=== PATIENT | female | born 1970 | race Caucasian/White ===

== ENCOUNTER 2024-07-03 11:28 | Outpatient (RCR) | payer MEDICARE, MEDICAID, SELFPAY ==
[2024-07-02 16:19] LABS: Basophils # (Auto) 0.1 Thou/mm3 (0.0-0.2); Basophils % (Auto) 1 % (0-2.5); Eosinophils # (Auto) 0.2 Thou/mm3 (0.0-0.5); Eosinophils % (Auto) 2 % (0-10); Hematocrit 42.2 % (36.0-46.0); Hemoglobin 14.1 g/dL (12.0-16.0); Immature Granulocytes % (Auto) 0 % (0-0); Immature Granulocytes Auto 0.03 Thou/mm3 (0.00-0.00); Lymphocytes # (Auto) 2.5 Thou/mm3 (1.0-4.8); Lymphocytes % (Auto) 29 % (10-50); Mean Corpuscular HGB Conc 33.4 g/dl (31.0-37.0); Mean Corpuscular Hemoglobin 29.7 pg (25.0-35.0); Mean Corpuscular Volume 89 fL (80-100); Monocytes # (Auto) 0.5 Thou/mm3 (0.0-0.8); Monocytes % (Auto) 6 % (0-12); Neutrophils # (Auto) 5.2 Thou/mm3 (1.8-7.7); Neutrophils % (Auto) 62 % (37-80); Nucleated Red Blood Cell % 0 /100 WBC (0); Platelet Count 333 Thou/mm3 (140-440); RDW Standard Deviation 45.2 fL (36.4-46.3); Red Blood Count 4.75 Miln/mm3 (4.00-5.20); White Blood Count 8.5 Thou/mm3 (3.6-11.0)
[2024-07-02 16:38] LABS: Alanine Aminotransferase 14 U/L (10-49); Albumin, Serum 4.8 gm/dL (3.5-5.0); Albumin/Globulin Ratio 1.8 (1.2-2.2); Alkaline Phosphatase 98 U/L (46-116); Anion Gap 6 (7-16); Aspartate Amino Transferase 11 U/L (0-34); BUN/Creatinine Ratio 9 Ratio (12-20); Bilirubin,Total 0.2 mg/dL (0.3-1.2); Blood Urea Nitrogen 9 mg/dL (9-23); Calcium 9.9 mg/dL (8.3-10.6); Calcium (Corrected) 9.9 mg/dL (8.5-10.1); Carbon Dioxide 25.4 mMol/L (20.0-31.0); Chloride 106 mMol/L (98-107); Globulin 2.7 gm/dL (2.3-3.5); Glucose 90 mg/dL (74-106); Osmolality,Calculated 272 (275-295); Potassium 3.8 mMol/L (3.4-5.1); Sodium 137 mMol/L (136-145); Thyroid Stimulating Hormone 1.34 uIU/mL (0.55-4.78); Total Protein 7.5 gm/dL (5.7-8.2); eGFR > 60 See Note
== END 2024-07-27 23:59 | disposition home or self-care (01) ==
LOC: SCTC 11:28
PROVIDERS: PCP Physician Assistant; Referring Provider Physician Assistant; Visit Provider Internal Medicine Hematology & Oncology
DX: Z51.11 Encounter for antineoplastic chemotherapy (principal); C44.521 Squamous cell carcinoma of skin of breast; Z21 Asymptomatic human immunodeficiency virus [HIV] infection status; Z79.899 Other long term (current) drug therapy
CPT/HCPCS: 36415; 80053; 84443; 85025; 96413; J9119

== ENCOUNTER 2024-08-06 10:45 | Outpatient (RCR) | payer MEDICARE, MEDICAID, SELFPAY ==
[2024-08-05 16:31] LABS: Basophils % (Auto) 0 % (0-2.5); Eosinophils # (Auto) 0.1 Thou/mm3 (0.0-0.5); Eosinophils % (Auto) 1 % (0-10); Hematocrit 36.7 % (36.0-46.0); Hemoglobin 12.2 g/dL (12.0-16.0); Immature Granulocytes % (Auto) 1 % (0-0); Immature Granulocytes Auto 0.04 Thou/mm3 (0.00-0.00); Lymphocytes % (Auto) 24 % (10-50); Mean Corpuscular HGB Conc 33.2 g/dl (31.0-37.0); Mean Corpuscular Volume 90 fL (80-100); Monocytes # (Auto) 0.5 Thou/mm3 (0.0-0.8); Monocytes % (Auto) 6 % (0-12); Neutrophils # (Auto) 5.7 Thou/mm3 (1.8-7.7); Neutrophils % (Auto) 68 % (37-80); Nucleated Red Blood Cell % 0 /100 WBC (0); Platelet Count 312 Thou/mm3 (140-440); RDW Standard Deviation 47.8 fL (36.4-46.3); Red Blood Count 4.07 Miln/mm3 (4.00-5.20); White Blood Count 8.3 Thou/mm3 (3.6-11.0)
[2024-08-05 16:53] LABS: Alanine Aminotransferase 11 U/L (10-49); Albumin, Serum 4.2 gm/dL (3.5-5.0); Albumin/Globulin Ratio 1.9 (1.2-2.2); Alkaline Phosphatase 80 U/L (46-116); Anion Gap 6 (7-16); Aspartate Amino Transferase 15 U/L (0-34); BUN/Creatinine Ratio 12 Ratio (12-20); Bilirubin,Total 0.2 mg/dL (0.3-1.2); Blood Urea Nitrogen 11 mg/dL (9-23); Calcium 9.1 mg/dL (8.3-10.6); Calcium (Corrected) 9.1 mg/dL (8.5-10.1); Carbon Dioxide 25.7 mMol/L (20.0-31.0); Chloride 109 mMol/L (98-107); Creatinine (Component) 0.9 mg/dL (0.6-1.3); Globulin 2.2 gm/dL (2.3-3.5); Glucose 113 mg/dL (74-106); Osmolality,Calculated 281 (275-295); Potassium 4.1 mMol/L (3.4-5.1); Sodium 141 mMol/L (136-145); Thyroid Stimulating Hormone 1.04 uIU/mL (0.55-4.78); Total Protein 6.4 gm/dL (5.7-8.2); eGFR > 60 See Note
== END 2024-08-27 23:59 | disposition home or self-care (01) ==
LOC: SCTC 10:45
PROVIDERS: PCP Family Medicine; Referring Provider Internal Medicine Hematology & Oncology; Visit Provider Internal Medicine Hematology & Oncology
DX: Z51.11 Encounter for antineoplastic chemotherapy (principal); C44.529 Squamous cell carcinoma of skin of other part of trunk; Z21 Asymptomatic human immunodeficiency virus [HIV] infection status; Z79.899 Other long term (current) drug therapy
CPT/HCPCS: 36415; 80053; 84443; 85025; 96413; J9119

== ENCOUNTER 2024-09-24 13:03 | Outpatient (RCR) | payer MEDICARE, SELFPAY ==
[2024-09-02 12:10] LABS: Basophils % (Auto) 1 % (0-2.5); Eosinophils # (Auto) 0.1 Thou/mm3 (0.0-0.5); Eosinophils % (Auto) 2 % (0-10); Hematocrit 39.6 % (36.0-46.0); Hemoglobin 13.7 g/dL (12.0-16.0); Immature Granulocytes % (Auto) 0 % (0-0); Immature Granulocytes Auto 0.01 Thou/mm3 (0.00-0.00); Lymphocytes # (Auto) 2.1 Thou/mm3 (1.0-4.8); Lymphocytes % (Auto) 31 % (10-50); Mean Corpuscular HGB Conc 34.6 g/dl (31.0-37.0); Mean Corpuscular Hemoglobin 29.8 pg (25.0-35.0); Mean Corpuscular Volume 86 fL (80-100); Monocytes # (Auto) 0.5 Thou/mm3 (0.0-0.8); Monocytes % (Auto) 8 % (0-12); Neutrophils % (Auto) 59 % (37-80); Nucleated Red Blood Cell % 0 /100 WBC (0); Platelet Count 286 Thou/mm3 (140-440); RDW Standard Deviation 42.6 fL (36.4-46.3); Red Blood Count 4.59 Miln/mm3 (4.00-5.20); White Blood Count 6.8 Thou/mm3 (3.6-11.0)
[2024-09-02 12:55] LABS: Alanine Aminotransferase 14 U/L (10-49); Albumin, Serum 4.6 gm/dL (3.5-5.0); Albumin/Globulin Ratio 1.8 (1.2-2.2); Alkaline Phosphatase 91 U/L (46-116); Anion Gap 6 (7-16); Aspartate Amino Transferase < 8 U/L (0-34); BUN/Creatinine Ratio 13 Ratio (12-20); Bilirubin,Total 0.3 mg/dL (0.3-1.2); Blood Urea Nitrogen 10 mg/dL (9-23); Calcium 9.6 mg/dL (8.3-10.6); Calcium (Corrected) 9.6 mg/dL (8.5-10.1); Carbon Dioxide 21.9 mMol/L (20.0-31.0); Chloride 110 mMol/L (98-107); Creatinine (Component) 0.8 mg/dL (0.6-1.3); Globulin 2.5 gm/dL (2.3-3.5); Glucose 84 mg/dL (74-106); Osmolality,Calculated 273 (275-295); Potassium 3.9 mMol/L (3.4-5.1); Sodium 138 mMol/L (136-145); Total Protein 7.1 gm/dL (5.7-8.2); eGFR > 60 See Note
[2024-09-23 15:21] LABS: Basophils % (Auto) 1 % (0-2.5); Eosinophils # (Auto) 0.1 Thou/mm3 (0.0-0.5); Eosinophils % (Auto) 2 % (0-10); Hematocrit 38.4 % (36.0-46.0); Immature Granulocytes % (Auto) 0 % (0-0); Immature Granulocytes Auto 0.02 Thou/mm3 (0.00-0.00); Lymphocytes # (Auto) 2.3 Thou/mm3 (1.0-4.8); Lymphocytes % (Auto) 32 % (10-50); Mean Corpuscular HGB Conc 33.9 g/dl (31.0-37.0); Mean Corpuscular Volume 89 fL (80-100); Monocytes # (Auto) 0.5 Thou/mm3 (0.0-0.8); Monocytes % (Auto) 6 % (0-12); Neutrophils # (Auto) 4.5 Thou/mm3 (1.8-7.7); Neutrophils % (Auto) 60 % (37-80); Nucleated Red Blood Cell % 0 /100 WBC (0); Platelet Count 289 Thou/mm3 (140-440); RDW Standard Deviation 44.7 fL (36.4-46.3); Red Blood Count 4.33 Miln/mm3 (4.00-5.20); White Blood Count 7.4 Thou/mm3 (3.6-11.0)
[2024-09-23 15:39] LABS: Alanine Aminotransferase 12 U/L (10-49); Albumin, Serum 4.3 gm/dL (3.5-5.0); Albumin/Globulin Ratio 1.7 (1.2-2.2); Alkaline Phosphatase 87 U/L (46-116); Anion Gap 9 (7-16); Aspartate Amino Transferase 19 U/L (0-34); BUN/Creatinine Ratio 8 Ratio (12-20); Bilirubin,Total 0.2 mg/dL (0.3-1.2); Blood Urea Nitrogen 7 mg/dL (9-23); Calcium 9.4 mg/dL (8.3-10.6); Calcium (Corrected) 9.4 mg/dL (8.5-10.1); Carbon Dioxide 20.2 mMol/L (20.0-31.0); Chloride 110 mMol/L (98-107); Creatinine (Component) 0.9 mg/dL (0.6-1.3); Globulin 2.5 gm/dL (2.3-3.5); Glucose 109 mg/dL (74-106); Osmolality,Calculated 276 (275-295); Potassium 3.6 mMol/L (3.4-5.1); Sodium 139 mMol/L (136-145); Thyroid Stimulating Hormone 1.05 uIU/mL (0.55-4.78); Total Protein 6.8 gm/dL (5.7-8.2); eGFR > 60 See Note
== END 2024-09-27 23:59 | disposition home or self-care (01) ==
LOC: SCTC 13:03
PROVIDERS: PCP Family Medicine; Referring Provider Family Medicine; Visit Provider Internal Medicine Hematology & Oncology
DX: Z51.11 Encounter for antineoplastic chemotherapy (principal); C44.529 Squamous cell carcinoma of skin of other part of trunk; Z21 Asymptomatic human immunodeficiency virus [HIV] infection status; Z79.899 Other long term (current) drug therapy
CPT/HCPCS: 36591; 80053; 84443; 85025; 96413; A4216; J1642; J9119

== ENCOUNTER 2024-10-16 13:09 | Outpatient (RCR) | payer MEDICARE, SELFPAY ==
[2024-10-15 14:10] LABS: Basophils % (Auto) 0 % (0-2.5); Eosinophils # (Auto) 0.1 Thou/mm3 (0.0-0.5); Eosinophils % (Auto) 1 % (0-10); Hematocrit 41.5 % (36.0-46.0); Hemoglobin 14.4 g/dL (12.0-16.0); Immature Granulocytes % (Auto) 0 % (0-0); Immature Granulocytes Auto 0.04 Thou/mm3 (0.00-0.00); Lymphocytes # (Auto) 2.1 Thou/mm3 (1.0-4.8); Lymphocytes % (Auto) 21 % (10-50); Mean Corpuscular HGB Conc 34.7 g/dl (31.0-37.0); Mean Corpuscular Hemoglobin 30.1 pg (25.0-35.0); Mean Corpuscular Volume 87 fL (80-100); Monocytes # (Auto) 0.7 Thou/mm3 (0.0-0.8); Monocytes % (Auto) 7 % (0-12); Neutrophils % (Auto) 70 % (37-80); Nucleated Red Blood Cell % 0 /100 WBC (0); Platelet Count 320 Thou/mm3 (140-440); RDW Standard Deviation 41.5 fL (36.4-46.3); Red Blood Count 4.78 Miln/mm3 (4.00-5.20); White Blood Count 9.9 Thou/mm3 (3.6-11.0)
[2024-10-15 14:19] LABS: Alanine Aminotransferase 16 U/L (10-49); Albumin, Serum 4.9 gm/dL (3.5-5.0); Albumin/Globulin Ratio 1.6 (1.2-2.2); Alkaline Phosphatase 114 U/L (46-116); Anion Gap 9 (7-16); Aspartate Amino Transferase 20 U/L (0-34); BUN/Creatinine Ratio 12 Ratio (12-20); Bilirubin,Total 0.3 mg/dL (0.3-1.2); Blood Urea Nitrogen 11 mg/dL (9-23); Calcium 9.8 mg/dL (8.3-10.6); Calcium (Corrected) 9.8 mg/dL (8.5-10.1); Carbon Dioxide 24.5 mMol/L (20.0-31.0); Chloride 102 mMol/L (98-107); Creatinine (Component) 0.9 mg/dL (0.6-1.3); Glucose 86 mg/dL (74-106); Osmolality,Calculated 268 (275-295); Potassium 4.1 mMol/L (3.4-5.1); Sodium 135 mMol/L (136-145); Thyroid Stimulating Hormone 2.41 uIU/mL (0.55-4.78); Total Protein 7.9 gm/dL (5.7-8.2); eGFR > 60 See Note
== END 2024-10-25 23:59 | disposition home or self-care (01) ==
LOC: SCTC 13:09
PROVIDERS: PCP Family Medicine; Referring Provider Family Medicine; Visit Provider Internal Medicine Hematology & Oncology
DX: Z51.11 Encounter for antineoplastic chemotherapy (principal); C44.521 Squamous cell carcinoma of skin of breast; Z21 Asymptomatic human immunodeficiency virus [HIV] infection status; Z79.899 Other long term (current) drug therapy
CPT/HCPCS: 36591; 80053; 84443; 85025; 96413; J7050; J9119

== ENCOUNTER 2024-11-25 13:58 | Outpatient (RCR) | payer MEDICARE, SELFPAY ==
[2024-11-05 14:06] LABS: Basophils % (Auto) 1 % (0-2.5); Eosinophils # (Auto) 0.2 Thou/mm3 (0.0-0.5); Eosinophils % (Auto) 3 % (0-10); Hematocrit 39.5 % (36.0-46.0); Hemoglobin 13.6 g/dL (12.0-16.0); Immature Granulocytes % (Auto) 0 % (0-0); Immature Granulocytes Auto 0.02 Thou/mm3 (0.00-0.00); Lymphocytes % (Auto) 24 % (10-50); Mean Corpuscular HGB Conc 34.4 g/dl (31.0-37.0); Mean Corpuscular Hemoglobin 30.4 pg (25.0-35.0); Mean Corpuscular Volume 88 fL (80-100); Monocytes # (Auto) 0.5 Thou/mm3 (0.0-0.8); Monocytes % (Auto) 6 % (0-12); Neutrophils # (Auto) 5.5 Thou/mm3 (1.8-7.7); Neutrophils % (Auto) 66 % (37-80); Nucleated Red Blood Cell % 0 /100 WBC (0); Platelet Count 292 Thou/mm3 (140-440); RDW Standard Deviation 43.8 fL (36.4-46.3); Red Blood Count 4.48 Miln/mm3 (4.00-5.20); White Blood Count 8.4 Thou/mm3 (3.6-11.0)
[2024-11-05 14:31] LABS: Alanine Aminotransferase 16 U/L (10-49); Albumin, Serum 4.6 gm/dL (3.5-5.0); Albumin/Globulin Ratio 1.8 (1.2-2.2); Alkaline Phosphatase 90 U/L (46-116); Anion Gap 7 (7-16); Aspartate Amino Transferase 23 U/L (0-34); BUN/Creatinine Ratio 14 Ratio (12-20); Bilirubin,Total < 0.2 mg/dL (0.3-1.2); Blood Urea Nitrogen 10 mg/dL (9-23); Calcium 9.7 mg/dL (8.3-10.6); Calcium (Corrected) 9.7 mg/dL (8.5-10.1); Carbon Dioxide 21.3 mMol/L (20.0-31.0); Chloride 112 mMol/L (98-107); Creatinine (Component) 0.7 mg/dL (0.6-1.3); Globulin 2.6 gm/dL (2.3-3.5); Glucose 96 mg/dL (74-106); Osmolality,Calculated 278 (275-295); Potassium 4.1 mMol/L (3.4-5.1); Sodium 140 mMol/L (136-145); Thyroid Stimulating Hormone 1.24 uIU/mL (0.55-4.78); Total Protein 7.2 gm/dL (5.7-8.2); eGFR > 60 See Note
[2024-11-25 15:27] LABS: Basophils % (Auto) 1 % (0-2.5); Eosinophils # (Auto) 0.1 Thou/mm3 (0.0-0.5); Eosinophils % (Auto) 2 % (0-10); Hematocrit 36.9 % (36.0-46.0); Hemoglobin 12.6 g/dL (12.0-16.0); Immature Granulocytes % (Auto) 0 % (0-0); Immature Granulocytes Auto 0.02 Thou/mm3 (0.00-0.00); Lymphocytes # (Auto) 2.3 Thou/mm3 (1.0-4.8); Lymphocytes % (Auto) 27 % (10-50); Mean Corpuscular HGB Conc 34.1 g/dl (31.0-37.0); Mean Corpuscular Hemoglobin 30.2 pg (25.0-35.0); Mean Corpuscular Volume 89 fL (80-100); Monocytes # (Auto) 0.4 Thou/mm3 (0.0-0.8); Monocytes % (Auto) 5 % (0-12); Neutrophils # (Auto) 5.7 Thou/mm3 (1.8-7.7); Neutrophils % (Auto) 66 % (37-80); Nucleated Red Blood Cell % 0 /100 WBC (0); Platelet Count 266 Thou/mm3 (140-440); RDW Standard Deviation 42.7 fL (36.4-46.3); Red Blood Count 4.17 Miln/mm3 (4.00-5.20); White Blood Count 8.6 Thou/mm3 (3.6-11.0)
[2024-11-25 15:42] LABS: Alanine Aminotransferase 13 U/L (10-49); Albumin, Serum 4.1 gm/dL (3.5-5.0); Albumin/Globulin Ratio 1.5 (1.2-2.2); Alkaline Phosphatase 85 U/L (46-116); Anion Gap 7 (7-16); Aspartate Amino Transferase 18 U/L (0-34); BUN/Creatinine Ratio 7 Ratio (12-20); Bilirubin,Total 0.2 mg/dL (0.3-1.2); Blood Urea Nitrogen 7 mg/dL (9-23); Calcium 9.1 mg/dL (8.3-10.6); Calcium (Corrected) 9.1 mg/dL (8.5-10.1); Carbon Dioxide 23.9 mMol/L (20.0-31.0); Chloride 111 mMol/L (98-107); Globulin 2.7 gm/dL (2.3-3.5); Glucose 99 mg/dL (74-106); Osmolality,Calculated 281 (275-295); Potassium 3.7 mMol/L (3.4-5.1); Sodium 142 mMol/L (136-145); Thyroid Stimulating Hormone 1.25 uIU/mL (0.55-4.78); Total Protein 6.8 gm/dL (5.7-8.2); eGFR > 60 See Note
== END 2024-11-25 23:59 | disposition home or self-care (01) ==
LOC: SCTC 13:58
PROVIDERS: PCP Family Medicine; Referring Provider Family Medicine; Visit Provider Internal Medicine Hematology & Oncology
DX: Z51.11 Encounter for antineoplastic chemotherapy (principal); C44.521 Squamous cell carcinoma of skin of breast; Z21 Asymptomatic human immunodeficiency virus [HIV] infection status; Z79.899 Other long term (current) drug therapy
CPT/HCPCS: 36415; 80053; 84443; 85025; 96413; J7050; J9119

== ENCOUNTER 2024-12-18 11:03 | Outpatient (RCR) | payer MEDICARE, SELFPAY ==
--- NOTE | 2024-11-26 22:22 | CTCFLWUP_ITS ---
Patient: NGA ETIENNE : 1970 Page 2 of 3 FOLLOW UP NOTE DATE OF SERVICE: 11/26/2024 NAME: NGA ETIENNE ACCOUNT: [id number] : 1970 AGE: 54 INTERVAL HISTORY: Have not seen a estimator for last couple of years. Patient endorses that she has been self treating her squamous cell cancer lesions on her arms as well as face as insurance did not cover her visits. Patient has been scraping of the lesions as well as cutting them off and shaving them in a bit to not get the progressive lesions. 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 Patient has been on Cemiplimab since 01/22/2020. History of HIV currently on antiretroviral medications under the care of Dr Gibbs. REASON FOR TODAY?S VISIT: This is office follow-up visit. Ms. Etienne is here at [facility]. She is clinically doing very well. Denies any new complaints. Denies any cough, chest pain, abdominal pain or leg cramps. Ambulating well without any help. Currently she is on Cemiplimab every 3 weeks. There is no clinical evidence of recurrence of her squamous cell carci noma of the chest. Ms. Etienne is planning on having surgery on the cervical spine in near future. Unspecified malignant neoplasm of skin of breast [ICD10] C44.501 DATE OF DIAGNOSIS: 2017 PATHOLOGY: Squamous cell cancer STAGE/TNM: Metastatic TREATMENT HISTORY: Care?Plan Start?Date Cycle Day Intent Cemiplimab?michael 04/30/2020 1 21 Palliative HISTORY OF PRESENT ILLNESS: Nga Etienne is a 54-year-old ENG speaking female with following history. 1986: Patient was diagnosed with HIV. She was 16 years old. According to her she contacted the HIV virus from her boyfriend who had blood transfusion. Currently she is being followed by Dr Gibbs infectious disease specialist from [place]. She saw him about 4 months ago. Currently she is on antiretroviral medications. Patient denies any history of drug abuse. 2018: Patient had surgery done at [facility] on right periorbital region. She had a tumor removed from that area. 3 months later she started noticing nodules on the right chest. According to her these 2 are related. 10/07/2019: Patient had radical resection of the fungating right chest squamous cell carcinoma measuring 20 x 15 cm in size. Pathology showed the following. 10/29/2019: Patient had skin graft from right thigh to right chest at [facility]. 12/12/2019: Patient had punch biopsy of the right chest nodule. Pathology showed recurrent invasive squamous cell carcinoma. 01/22/2020: Patient received first dose of Cemiplimab at [facility]. 01/22/2020: PET CT scan? 04/21/2020: PET CT scan? 04/30/2020: Patient is started on Cemiplimab here at the cancer center. 10/23/2020: PET CT scan? 03/30/2021: MRI of the brain without IV contrast? 09/14/2021: CT scan of the chest abdomen and pelvis with IV contrast? 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 abacavir - 300 mg tab As directed 2. baclofen - 10 mg 1 tab Twice a Day 3. busPIRone - 15 mg 0.5 tab Twice a Day 4. doxepin - 50 mg 1 Capsule Every day before sleep 5. Edurant - 25 mg 1 tab Daily 6. escitalopram oxalate - 20 mg 1 tab Daily 7. ibuprofen - 800 mg 1 tab Three times a day 8. lovastatin - 20 mg 1 tab Daily 9. Lyrica - 100 mg Four times a day 10. [place] - 10-325 mg 1 tab Every 8 Hours 11. ondansetron - 8 mg 1 tab Every 8 Hours 12. potassium chloride - 8 mEq 1 tab Daily 13. QUEtiapine - 50 mg 1 tab Every day before sleep 14. Tivicay - 50 mg 1 tab Daily 15. tiZANidine - 2 mg 1 Capsule As directed 16. verapamil - 180 mg 1 tab Twice a Day Medications Last Reconciled by Yuly Mares MA on 11/26/2024 ALLERGIES: codeine sulfate REVIEW OF SYSTEMS: A complete 14-point review of systems was performed and is negative except as noted in interval history. PHYSICAL EXAMINATION: VITAL SIGNS: Temperature?99, B/P?131/89, Oxygen?Saturation?98% Weight?183?lbs (Change?since?11/25/24:?-2?lbs) PAIN: 7 - Between severe and very severe pain ECOG Performance Status: 1 - Symptomatic; ambulatory; restricted in strenuous activity GENERAL APPEARANCE: Appears well, in no apparent distress, appropriately interactive. HEENT: Normocephalic, no temporal wasting, normal conjunctiva, no scleral icterus, normal hearing, lips without lesions, neck normal range of motion. CARDIOVASCULAR: Not assessed. PULMONARY: Normal respiratory effort, no respiratory distress or use of accessory muscles, speaking in full sentences, no tachypnea. EXTREMITIES: No pedal edema or cyanosis. SKIN: Mild gauze over the face and chest. Sand-like skin all over the arms and back. Multiple small lesions noted on the skin. Right arm has a bigger lesion about 2 cm. Nonhealing lesion on the ear NEUROLOGIC: Alert and oriented x4. PSHYCHIATRIC: Appropriate affect, mood normal, behavior normal, intact thought and speech. LABORATORY DATA: I have personally reviewed and interpreted each of the patient?s relevant lab tests, abnormal findings are below: Date 11/05/24 11/25/24 ??WHITE?BLOOD?COUNT?(Thou/mm3) 8.4 8.6 ??RED?BLOOD?COUNT?(Miln/mm3) 4.48 4.17 ??HEMOGLOBIN?(gm/dl) 13.6 12.6 ??HEMATOCRIT?(%) 39.5 36.9 ??PLATELET?COUNT?(Thou/mm3) 292 266 ??NEUTROPHILS?%,?AUTO?(%) 66 66 ??LYMPH?%,?AUTO?(%) 24 27 ??NEUTROPHILS,?AUTO?(Thou/mm3) 5.5 5.7 ??GLUCOSE,RANDOM?(mg/dL) 96 99 ??BLOOD?UREA?NITROGEN?(mg/dL) 10 7?L ??CREATININE?(mg/dL) 0.70 1.00 ??SODIUM?(mmol/L) 140 142 ??POTASSIUM?(mmol/L) 4.1 3.7 ??CHLORIDE?(mmol/L) 112?H 111?H ??CrCl?(CandG)?(ml/min) 101.47 71.44 ??AST/SGOT?(Unit/L) 23 18 ??ALT/SGPT?(Unit/L) 16 13 ??ALKALINE?PHOSPHATASE?(Unit/L) 90 85 ??BILIRUBIN,?TOTAL?(mg/dL) <?0.2?L 0.2?L ??PROTEIN?TOTAL?(gm/dl) 7.2 6.8 ??ALBUMIN,?SERUM?(gm/dl) 4.6 4.1 ??GLOBULIN?(gm/dl) 2.6 2.7 ??ALBUMIN/GLOBULIN?RATIO 1.8 1.5 ??CALCIUM,?SERUM?(mg/dL) 9.7 9.1 ??CALCIUM?SERUM?(CORRECTED)?(mg/dL) 9.7 9.1 ASSESSMENT/PLAN: 1. Metastatic squamous cell cancer s/p resection after local recurrence squamous cell cancer of the right chest wall patient multiple lesions on the skin Patient has been on Cemiplimab for many treatments I need dermatology opinion to see if patient need to continue treatment or we need to stop it I will send a new dermatology referral Patient advised to follow-up with for her infectious disease specialist Ms. Etienne is planning on having cervical spine surgery in near future. History of HIV currently on antiretroviral. AIDS currently on retroviral therapy under the care of Dr Gibbs. 1. Continue Cemiplimab as per treatment plan. Refer to dermatology. ORDERS: Order # Description [id number] PET/CT of Skull to mid-thigh for Restaging [id number] CBC + Comprehensive Metabolic Panel [id number] Lab Appointment [id number] Follow Up Appointment [id number] CBC + Comprehensive Metabolic Panel [id number] Lab Appointment [id number] Follow Up Appointment [id number] CBC + Comprehensive Metabolic Panel [id number] Lab Appointment [id number] Follow Up Appointment [id number] CBC + Comprehensive Metabolic Panel [id number] Lab Appointment [id number] Follow Up Appointment [id number] CBC + Comprehensive Metabolic Panel [id number] Lab Appointment [id number] Follow Up Appointment [id number] CBC + Comprehensive Metabolic Panel [id number] Lab Appointment [id number] Follow Up Appointment [id number] CBC + Comprehensive Metabolic Panel [id number] Lab Appointment [id number] Follow Up Appointment [id number] CBC + Comprehensive Metabolic Panel [id number] Lab Appointment [id number] Follow Up Appointment [id number] CBC + Comprehensive Metabolic Panel [id number] Lab Appointment [id number] Follow Up Appointment [id number] CBC + Comprehensive Metabolic Panel [id number] Lab Appointment [id number] Follow Up Appointment [id number] CBC + Comprehensive Metabolic Panel [id number] Lab Appointment [id number] Follow Up Appointment [id number] CBC + Comprehensive Metabolic Panel [id number] Lab Appointment [id number] Follow Up Appointment [id number] CBC + Comprehensive Metabolic Panel [id number] Lab Appointment [id number] Follow Up Appointment [id number] CBC + Comprehensive Metabolic Panel [id number] Lab Appointment [id number] Follow Up Appointment [id number] CBC + Comprehensive Metabolic Panel [id number] Lab Appointment [id number] Follow Up Appointment [id number] CBC + Comprehensive Metabolic Panel [id number] Lab Appointment [id number] Follow Up Appointment [id number] CBC + Comprehensive Metabolic Panel [id number] Lab Appointment [id number] Follow Up Appointment RETURN TO CLINIC: BILLING AND COMPLIANCE: I reviewed external records from providers outside my specialty as summarized above. I spent a total of 50 minutes on this patient?s care on the day of their visit excluding time spent related to any billed procedures. This time includes time spent with the patient as well as time spent documenting in the medical record, reviewing patients records and tests, obtaining history, placing orders, communicating with other healthcare professionals, counseling the patient, family or caregiver, and/or care coordination for the diagnoses above. Electronically Signed by: Reji Oneill MD T: 10:20 PM CC: Miguel?Angie? PCP: Bj Guo Referring: Bj Guo This document was completed utilizing speech recognition software. Grammatical errors, random word insertions, pronoun errors, and incomplete sentences are an occasional consequence of this system due to software limitations, ambient noise, and hardware issues. Any formal questions or concerns about the content, text or information contained within the body of this dictation should be directly addressed to the provider for clarification.
--- NOTE | 2024-12-15 22:31 | CTCFLWUP_ITS ---
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 Patient has been on Cemiplimab since 01/22/2020. History of HIV currently on antiretroviral medications under the care of Dr Gibbs. DATE OF DIAGNOSIS: STAGE/TNM: TREATMENT HISTORY: Care?Plan Start?Date Cycle Day Intent Cemiplimab?michael 04/30/2020 1 21 Palliative HISTORY OF PRESENT ILLNESS: Nga Etienne is a 53-year-old ENG speaking female with following history. 1986: Patient was diagnosed with HIV. She was 16 years old. According to her she contacted the HIV virus from her boyfriend who had blood transfusion. Currently she is being followed by Dr Gibbs infectious disease specialist from [place]. She saw him about 4 months ago. Currently she is on antiretroviral medications. Patient denies any history of drug abuse. 2018: Patient had [facility] at [facility] on right periorbital region. She had a tumor removed from that area. 3 months later she started noticing nodules on the right chest. According to her these 2 are related. 10/07/2019: Patient had radical resection of the fungating right chest squamous cell carcinoma measuring 20 x 15 cm in size. Pathology showed the following. 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 abacavir - 300 mg tab As directed 2. baclofen - 10 mg 1 tab Twice a Day 3. busPIRone - 15 mg 0.5 tab Twice a Day 4. doxepin - 50 mg 1 Capsule Every day before sleep 5. Edurant - 25 mg 1 tab Daily 6. escitalopram oxalate - 20 mg 1 tab Daily 7. ibuprofen - 800 mg 1 tab Three times a day 8. lovastatin - 20 mg 1 tab Daily 9. Lyrica - 100 mg Four times a day 10. [place] - 10-325 mg 1 tab Every 8 Hours 11. ondansetron - 8 mg 1 tab Every 8 Hours 12. potassium chloride - 8 mEq 1 tab Daily 13. QUEtiapine - 50 mg 1 tab Every day before sleep 14. Tivicay - 50 mg 1 tab Daily 15. tiZANidine - 2 mg 1 Capsule As directed 16. verapamil - 180 mg 1 tab Twice a Day Medications Last Reconciled by Yuly Mares MA on 11/26/2024 ALLERGIES: codeine sulfate REVIEW OF SYSTEMS: A complete 14-point review of systems was performed and is negative except as noted in interval history. PHYSICAL EXAMINATION: VITAL SIGNS: Temperature?99, B/P?131/89, Oxygen?Saturation?98% Weight?183?lbs (Change?since?11/25/24:?-2?lbs) PAIN: 0 - No pain ECOG Performance Status: 1 - Symptomatic; ambulatory; restricted in strenuous activity GENERAL APPEARANCE: Appears well, in no apparent distress, appropriately interactive. HEENT: Normocephalic, no temporal wasting, normal conjunctiva, no scleral icterus, normal hearing, lips without lesions, neck normal range of motion. CARDIOVASCULAR: Not assessed. PULMONARY: Normal respiratory effort, no respiratory distress or use of accessory muscles, speaking in full sentences, no tachypnea. EXTREMITIES: No pedal edema or cyanosis. SKIN: Normal skin appearance. NEUROLOGIC: Alert and oriented x4. PSHYCHIATRIC: Appropriate affect, mood normal, behavior normal, intact thought and speech. LABORATORY DATA: I have personally reviewed and interpreted each of the patient?s relevant lab tests, abnormal findings are below: Date 11/05/24 11/25/24 ??WHITE?BLOOD?COUNT?(Thou/mm3) 8.4 8.6 ??RED?BLOOD?COUNT?(Miln/mm3) 4.48 4.17 ??HEMOGLOBIN?(gm/dl) 13.6 12.6 ??HEMATOCRIT?(%) 39.5 36.9 ??PLATELET?COUNT?(Thou/mm3) 292 266 ??NEUTROPHILS?%,?AUTO?(%) 66 66 ??LYMPH?%,?AUTO?(%) 24 27 ??NEUTROPHILS,?AUTO?(Thou/mm3) 5.5 5.7 ??GLUCOSE,RANDOM?(mg/dL) 96 99 ??BLOOD?UREA?NITROGEN?(mg/dL) 10 7?L ??CREATININE?(mg/dL) 0.70 1.00 ??SODIUM?(mmol/L) 140 142 ??POTASSIUM?(mmol/L) 4.1 3.7 ??CHLORIDE?(mmol/L) 112?H 111?H ??CrCl?(CandG)?(ml/min) 101.47 71.44 ??AST/SGOT?(Unit/L) 23 18 ??ALT/SGPT?(Unit/L) 16 13 ??ALKALINE?PHOSPHATASE?(Unit/L) 90 85 ??BILIRUBIN,?TOTAL?(mg/dL) <?0.2?L 0.2?L ??PROTEIN?TOTAL?(gm/dl) 7.2 6.8 ??ALBUMIN,?SERUM?(gm/dl) 4.6 4.1 ??GLOBULIN?(gm/dl) 2.6 2.7 ??ALBUMIN/GLOBULIN?RATIO 1.8 1.5 ??CALCIUM,?SERUM?(mg/dL) 9.7 9.1 ??CALCIUM?SERUM?(CORRECTED)?(mg/dL) 9.7 9.1 ASSESSMENT/PLAN: ASSESSMENT: Patient is clinically doing well without any complaints today . Ms. Etienne is planning on having cervical spine surgery in near future. Her squamous cell carcinoma of the skin seems to be in remission without any obvious lesions Locally recurrent squamous cell carcinoma of the right chest wall status post surgery. History of HIV currently on antiretroviral. AIDS currently on retroviral therapy under the care of Dr Gibbs. PLAN: Continue Cemiplimab as per treatment plan. The last treatment prior to cervical spine surgery should be 3 weeks before the surgery. I have advised her to restart the Cemiplimab treatments 3 weeks after the surgery. I will see her back in clinic in 3 months for follow-up. ORDERS: Order # Description [id number] Follow Up Appointment [id number] CBC + Comprehensive Metabolic Panel [id number] Lab Appointment [id number] Follow Up Appointment [id number] CBC + Comprehensive Metabolic Panel [id number] Lab Appointment [id number] Follow Up Appointment [id number] CBC + Comprehensive Metabolic Panel [id number] Lab Appointment [id number] Follow Up Appointment [id number] CBC + Comprehensive Metabolic Panel [id number] Lab Appointment [id number] Follow Up Appointment [id number] CBC + Comprehensive Metabolic Panel [id number] Lab Appointment [id number] Follow Up Appointment [id number] CBC + Comprehensive Metabolic Panel [id number] Lab Appointment [id number] Follow Up Appointment [id number] CBC + Comprehensive Metabolic Panel [id number] Lab Appointment [id number] Follow Up Appointment MD [id number] CBC + Comprehensive Metabolic Panel [id number] Lab Appointment [id number] Follow Up Appointment [id number] CBC + Comprehensive Metabolic Panel [id number] Lab Appointment [id number] Follow Up Appointment [id number] CBC + Comprehensive Metabolic Panel [id number] Lab Appointment [id number] Follow Up Appointment [id number] CBC + Comprehensive Metabolic Panel [id number] Lab Appointment [id number] Follow Up Appointment [id number] CBC + Comprehensive Metabolic Panel [id number] Lab Appointment [id number] Follow Up Appointment [id number] CBC + Comprehensive Metabolic Panel [id number] Lab Appointment [id number] Follow Up Appointment [id number] CBC + Comprehensive Metabolic Panel [id number] Lab Appointment [id number] Follow Up Appointment [id number] CBC + Comprehensive Metabolic Panel [id number] Lab Appointment [id number] Follow Up Appointment [id number] CBC + Comprehensive Metabolic Panel [id number] Lab Appointment [id number] Follow Up Appointment RETURN TO CLINIC: BILLING AND COMPLIANCE: I reviewed external records from providers outside my specialty as summarized above. I spent a total of 50 minutes on this patient?s care on the day of their visit excluding time spent related to any billed procedures. This time includes time spent with the patient as well as time spent documenting in the medical record, reviewing patients records and tests, obtaining history, placing orders, communicating with other healthcare professionals, counseling the patient, family or caregiver, and/or care coordination for the diagnoses above. Electronically Signed by: {Object.Sanct_ID*PnP.NameFL@M}, {Object.Sanct_ID*PnP.Suffix@U} D: {Object.Sanct_Date} T: {Object.Sanct_Time} CC: Miguel?Angie,? PCP: Bj Guo Referring: Bj Guo This document was completed utilizing speech recognition software. Grammatical errors, random word insertions, pronoun errors, and incomplete sentences are an occasional consequence of this system due to software limitations, ambient noise, and hardware issues. Any formal questions or concerns about the content, text or information contained within the body of this dictation should be directly addressed to the provider for clarification.
[2024-12-17 14:27] LABS: Basophils % (Auto) 1 % (0-2.5); Eosinophils # (Auto) 0.2 Thou/mm3 (0.0-0.5); Eosinophils % (Auto) 3 % (0-10); Hematocrit 37.8 % (36.0-46.0); Hemoglobin 13.1 g/dL (12.0-16.0); Immature Granulocytes % (Auto) 0 % (0-0); Immature Granulocytes Auto 0.03 Thou/mm3 (0.00-0.00); Lymphocytes # (Auto) 2.1 Thou/mm3 (1.0-4.8); Lymphocytes % (Auto) 28 % (10-50); Mean Corpuscular HGB Conc 34.7 g/dl (31.0-37.0); Mean Corpuscular Hemoglobin 30.8 pg (25.0-35.0); Mean Corpuscular Volume 89 fL (80-100); Monocytes # (Auto) 0.5 Thou/mm3 (0.0-0.8); Monocytes % (Auto) 6 % (0-12); Neutrophils # (Auto) 4.6 Thou/mm3 (1.8-7.7); Neutrophils % (Auto) 62 % (37-80); Nucleated Red Blood Cell % 0 /100 WBC (0); Platelet Count 270 Thou/mm3 (140-440); Red Blood Count 4.25 Miln/mm3 (4.00-5.20); White Blood Count 7.4 Thou/mm3 (3.6-11.0)
[2024-12-17 14:53] LABS: Alanine Aminotransferase 13 U/L (10-49); Albumin, Serum 3.9 gm/dL (3.5-5.0); Albumin/Globulin Ratio 1.6 (1.2-2.2); Alkaline Phosphatase 80 U/L (46-116); Anion Gap 4 (7-16); Aspartate Amino Transferase 16 U/L (0-34); BUN/Creatinine Ratio 16 Ratio (12-20); Bilirubin,Total < 0.2 mg/dL (0.3-1.2); Blood Urea Nitrogen 14 mg/dL (9-23); Calcium 9.3 mg/dL (8.3-10.6); Calcium (Corrected) 9.4 mg/dL (8.5-10.1); Carbon Dioxide 22.2 mMol/L (20.0-31.0); Chloride 116 mMol/L (98-107); Creatinine (Component) 0.9 mg/dL (0.6-1.3); Globulin 2.5 gm/dL (2.3-3.5); Glucose 97 mg/dL (74-106); Osmolality,Calculated 283 (275-295); Potassium 3.6 mMol/L (3.4-5.1); Sodium 142 mMol/L (136-145); Thyroid Stimulating Hormone 0.87 uIU/mL (0.55-4.78); Total Protein 6.4 gm/dL (5.7-8.2); eGFR > 60 See Note
== END 2024-12-25 23:59 | disposition home or self-care (01) ==
LOC: SCTC 11:03
PROVIDERS: PCP Family Medicine; Referring Provider Family Medicine; Visit Provider Internal Medicine Hematology & Oncology
DX: Z51.11 Encounter for antineoplastic chemotherapy (principal); C44.521 Squamous cell carcinoma of skin of breast; Z21 Asymptomatic human immunodeficiency virus [HIV] infection status; Z79.899 Other long term (current) drug therapy
CPT/HCPCS: 36415; 80053; 84443; 85025; 96413; 99212; J7050; J9119; G0463

== ENCOUNTER 2025-01-08 09:25 | Outpatient (RCR) | payer MEDICARE, SELFPAY ==
[2025-01-07 14:58] LABS: Basophils % (Auto) 0 % (0-2.5); Eosinophils # (Auto) 0.2 Thou/mm3 (0.0-0.5); Eosinophils % (Auto) 3 % (0-10); Hematocrit 37.1 % (36.0-46.0); Hemoglobin 12.7 g/dL (12.0-16.0); Immature Granulocytes % (Auto) 0 % (0-0); Immature Granulocytes Auto 0.02 Thou/mm3 (0.00-0.00); Lymphocytes # (Auto) 2.1 Thou/mm3 (1.0-4.8); Lymphocytes % (Auto) 26 % (10-50); Mean Corpuscular HGB Conc 34.2 g/dl (31.0-37.0); Mean Corpuscular Hemoglobin 30.3 pg (25.0-35.0); Mean Corpuscular Volume 89 fL (80-100); Monocytes # (Auto) 0.6 Thou/mm3 (0.0-0.8); Monocytes % (Auto) 7 % (0-12); Neutrophils # (Auto) 5.2 Thou/mm3 (1.8-7.7); Neutrophils % (Auto) 65 % (37-80); Nucleated Red Blood Cell % 0 /100 WBC (0); Platelet Count 309 Thou/mm3 (140-440); RDW Standard Deviation 44.1 fL (36.4-46.3); Red Blood Count 4.19 Miln/mm3 (4.00-5.20); White Blood Count 8.1 Thou/mm3 (3.6-11.0)
[2025-01-07 15:28] LABS: Alanine Aminotransferase 14 U/L (10-49); Albumin, Serum 4.4 gm/dL (3.5-5.0); Albumin/Globulin Ratio 1.8 (1.2-2.2); Alkaline Phosphatase 80 U/L (46-116); Anion Gap 3 (7-16); Aspartate Amino Transferase 19 U/L (0-34); BUN/Creatinine Ratio 9 Ratio (12-20); Bilirubin,Total < 0.2 mg/dL (0.3-1.2); Blood Urea Nitrogen 7 mg/dL (9-23); Calcium 9.4 mg/dL (8.3-10.6); Calcium (Corrected) 9.4 mg/dL (8.5-10.1); Carbon Dioxide 22.7 mMol/L (20.0-31.0); Chloride 109 mMol/L (98-107); Creatinine (Component) 0.8 mg/dL (0.6-1.3); Globulin 2.4 gm/dL (2.3-3.5); Glucose 95 mg/dL (74-106); Osmolality,Calculated 268 (275-295); Potassium 3.8 mMol/L (3.4-5.1); Sodium 135 mMol/L (136-145); Thyroid Stimulating Hormone 1.35 uIU/mL (0.55-4.78); Total Protein 6.8 gm/dL (5.7-8.2); eGFR > 60 See Note
== END 2025-01-25 23:59 | disposition home or self-care (01) ==
LOC: SCTC 09:25
PROVIDERS: Referring Provider Internal Medicine Hematology & Oncology; Visit Provider Internal Medicine Hematology & Oncology
DX: Z51.11 Encounter for antineoplastic chemotherapy (principal); C44.529 Squamous cell carcinoma of skin of other part of trunk; Z21 Asymptomatic human immunodeficiency virus [HIV] infection status; Z79.899 Other long term (current) drug therapy
CPT/HCPCS: 36415; 80053; 84443; 85025; 96413; J7050; J9119

== ENCOUNTER → 2025-02-04 | Outpatient (CLI) | payer MEDICARE, MEDICAID, SELFPAY ==
--- NOTE | 2025-02-04 14:00 | XR_ITS ---
EXAMINATION: PET/CT FUSION SKULL TO THIGH EXAM DATE AND TIME: February 04, [address] abdomen pelvis September 17, 2023, CT chest September 14, 2021 INDICATIONS: Diagnosis malignant melanoma restaging post treatment CTDI:vol (mGy) 6.71 DLP: (mGycm) 696 PROCEDURE: 16.4 mCi FDG was administered intravenously To allow for distribution and uptake of radiotracer, the patient was allowed to rest quietly in a shielded room. Imaging was performed on an integrated 16-slice PET/CT scanner, with scanning from the skull base to the mid thigh. Serum blood glucose at the time of the injection was measured 86 mg/dL. CT scanning was performed without oral or intravenous contrast material. FINDINGS: Head and Neck: Weakly hypermetabolic submental lymph nodes, axial image 63, on the left side 13 mm on the right side 10 mm Weakly hypermetabolic right carotid triangle lymph node, axial image 62, 6.5 mm Chest: There is no leonid hypermetabolism in the chest. There are no pulmonary nodules. Abdomen and Pelvis: There is no leonid hypermetabolism in retroperitoneal or pelvic chains. The spleen is normal in size and FDG avidity. Musculoskeletal: Marrow uptake is within normal range. IMPRESSION: Positive for weakly hypermetabolic submental and right carotid triangle lymphadenopathy as above
== END | disposition home or self-care (01) ==
PROVIDERS: PCP Family Medicine; Referring Provider Internal Medicine Hematology & Oncology; Visit Provider Internal Medicine Hematology & Oncology
DX: C43.52 Malignant melanoma of skin of breast (principal); R59.0 Localized enlarged lymph nodes
CPT/HCPCS: 78815; A9552

== ENCOUNTER 2025-02-19 12:59 | Outpatient (RCR) | payer MEDICARE, SELFPAY ==
[2025-01-27 16:28] LABS: Basophils % (Auto) 0 % (0-2.5); Eosinophils # (Auto) 0.1 Thou/mm3 (0.0-0.5); Eosinophils % (Auto) 2 % (0-10); Hematocrit 37.7 % (36.0-46.0); Hemoglobin 13.5 g/dL (12.0-16.0); Immature Granulocytes % (Auto) 0 % (0-0); Immature Granulocytes Auto 0.01 Thou/mm3 (0.00-0.00); Lymphocytes # (Auto) 2.4 Thou/mm3 (1.0-4.8); Lymphocytes % (Auto) 35 % (10-50); Mean Corpuscular HGB Conc 35.8 g/dl (31.0-37.0); Mean Corpuscular Hemoglobin 31.3 pg (25.0-35.0); Mean Corpuscular Volume 87 fL (80-100); Monocytes # (Auto) 0.4 Thou/mm3 (0.0-0.8); Monocytes % (Auto) 5 % (0-12); Neutrophils # (Auto) 3.9 Thou/mm3 (1.8-7.7); Neutrophils % (Auto) 58 % (37-80); Nucleated Red Blood Cell % 0 /100 WBC (0); Platelet Count 252 Thou/mm3 (140-440); RDW Standard Deviation 43.4 fL (36.4-46.3); Red Blood Count 4.32 Miln/mm3 (4.00-5.20); White Blood Count 6.8 Thou/mm3 (3.6-11.0)
[2025-01-27 16:49] LABS: Alanine Aminotransferase 16 U/L (10-49); Albumin, Serum 4.4 gm/dL (3.5-5.0); Albumin/Globulin Ratio 1.8 (1.2-2.2); Alkaline Phosphatase 82 U/L (46-116); Anion Gap 12 (7-16); Aspartate Amino Transferase 23 U/L (0-34); BUN/Creatinine Ratio 6 Ratio (12-20); Bilirubin,Total 0.3 mg/dL (0.3-1.2); Blood Urea Nitrogen 6 mg/dL (9-23); Calcium 9.2 mg/dL (8.3-10.6); Calcium (Corrected) 9.2 mg/dL (8.5-10.1); Carbon Dioxide 23.9 mMol/L (20.0-31.0); Chloride 109 mMol/L (98-107); Globulin 2.4 gm/dL (2.3-3.5); Glucose 99 mg/dL (74-106); Osmolality,Calculated 286 (275-295); Potassium 3.8 mMol/L (3.4-5.1); Sodium 145 mMol/L (136-145); Thyroid Stimulating Hormone 0.95 uIU/mL (0.55-4.78); Total Protein 6.8 gm/dL (5.7-8.2); eGFR > 60 See Note
--- NOTE | 2025-02-16 21:53 | CTCFLWUP_ITS ---
Patient: NGA ETIENNE : 1970 Page 2 of 3 FOLLOW UP NOTE DATE OF SERVICE: 02/06/2025 NAME: NGA ETIENNE ACCOUNT: [id number] : 1970 AGE: 54 INTERVAL HISTORY: Subjective: Chief Complaint Lymph node activity on right side, dizziness, blisters in mouth, skin lesion on ear History of Present Illness Jaimie Sylvester, a patient with a history of melanoma, presents for follow-up of her condition. She reports a lymph node on the right side of her neck, which is the same side where she had a root canal done a couple of years ago. The patient mentions experiencing dizziness recently. She also reports waking up with blisters in her mouth. 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 She has not yet seen a sand miller but reports being recently approved for a referral. The patient expresses concern about her condition, stating, That's why I kept saying I needed to get into a sand miller. Nga mentions having a lesion on her ear. She has been experiencing dizziness, though the timing and severity are not specified. The patient denies being in the sun currently, stating, No, I'm not in the sun. However, she acknowledges the potential for UV exposure inside her house. The patient reports adherence to follow-up care, mentioning that an infusion on her neck has been proposed. She expresses a preference for continuing her care at [facility], where her initial melanoma surgery was performed. Review of Systems General: Positive for dizziness. Skin: Positive for blisters in mouth. HEENT: Positive for blisters in mouth. Neurological: Positive for dizziness. Objective: Physical Examination Neck: One mildly active lymph node noted on the right side. Skin: Lesion observed on the patient's ear on the right side. 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 Patient has been on Cemiplimab since 01/22/2020. History of HIV currently on antiretroviral medications under the care of Dr Gibbs. DATE OF DIAGNOSIS: STAGE/TNM: TREATMENT HISTORY: Care?Plan Start?Date Cycle Day Intent Cemiplimab?michael 04/30/2020 1 21 Palliative HISTORY OF PRESENT ILLNESS: Nga Etienne is a 54-year-old ENG speaking female with following history. 1986: Patient was diagnosed with HIV. She was 16 years old. According to her she contacted the HIV virus from her boyfriend who had blood transfusion. Currently she is being followed by Dr Gibbs infectious disease specialist from [place]. She saw him about 4 months ago. Currently she is on antiretroviral medications. Patient denies any history of drug abuse. 2018: Patient had surgery done at [facility] on right periorbital region. She had a tumor removed from that area. 3 months later she started noticing nodules on the right chest. According to her these 2 are related. 10/07/2019: Patient had radical resection of the fungating right chest squamous cell carcinoma measuring 20 x 15 cm in size. Pathology showed the following. 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 abacavir - 300 mg tab As directed 2. baclofen - 10 mg 1 tab Twice a Day 3. busPIRone - 15 mg 0.5 tab Twice a Day 4. doxepin - 50 mg 1 Capsule Every day before sleep 5. Edurant - 25 mg 1 tab Daily 6. escitalopram oxalate - 20 mg 1 tab Daily 7. ibuprofen - 800 mg 1 tab Three times a day 8. lovastatin - 20 mg 1 tab Daily 9. Lyrica - 100 mg Four times a day 10. [place] - 10-325 mg 1 tab Every 8 Hours 11. ondansetron - 8 mg 1 tab Every 8 Hours 12. potassium chloride - 8 mEq 1 tab Daily 13. QUEtiapine - 50 mg 1 tab Every day before sleep 14. Tivicay - 50 mg 1 tab Daily 15. tiZANidine - 2 mg 1 Capsule As directed 16. verapamil - 180 mg 1 tab Twice a Day Medications Last Reconciled by Yuly Mares MA on 02/06/2025 ALLERGIES: codeine sulfate REVIEW OF SYSTEMS: A complete 14-point review of systems was performed and is negative except as noted in interval history. PHYSICAL EXAMINATION: VITAL SIGNS: Temperature?98.4, B/P?128/91, Oxygen?Saturation?98% Weight?174?lbs (Change?since?01/29/25:?-4.4?lbs) PAIN: 7 - Between severe and very severe pain ECOG Performance Status: 0 - Asymptomatic and fully active GENERAL APPEARANCE: Appears well, in no apparent distress, appropriately interactive. HEENT: Normocephalic, no temporal wasting, normal conjunctiva, no scleral icterus, normal hearing, lips without lesions, neck normal range of motion. CARDIOVASCULAR: Not assessed. PULMONARY: Normal respiratory effort, no respiratory distress or use of accessory muscles, speaking in full sentences, no tachypnea. EXTREMITIES: No pedal edema or cyanosis. SKIN: Normal skin appearance. NEUROLOGIC: Alert and oriented x4. PSHYCHIATRIC: Appropriate affect, mood normal, behavior normal, intact thought and speech. LABORATORY DATA: I have personally reviewed and interpreted each of the patient?s relevant lab tests, abnormal findings are below: Date 01/07/25 01/27/25 ??WHITE?BLOOD?COUNT?(Thou/mm3) ? 8.1 6.8 ??RED?BLOOD?COUNT?(Miln/mm3) ? 4.19 4.32 ??HEMOGLOBIN?(gm/dl) ? 12.7 13.5 ??HEMATOCRIT?(%) ? 37.1 37.7 ??PLATELET?COUNT?(Thou/mm3) ? 309 252 ??NEUTROPHILS?%,?AUTO?(%) ? 65 58 ??LYMPH?%,?AUTO?(%) ? 26 35 ??NEUTROPHILS,?AUTO?(Thou/mm3) ? 5.2 3.9 ??GLUCOSE,RANDOM?(mg/dL) 95 ? 99 ??BLOOD?UREA?NITROGEN?(mg/dL) 7?L ? 6?L ??CREATININE?(mg/dL) 0.80 ? 1.00 ??SODIUM?(mmol/L) 135?L ? 145 ??POTASSIUM?(mmol/L) 3.8 ? 3.8 ??CHLORIDE?(mmol/L) 109?H ? 109?H ??CrCl?(CandG)?(ml/min) 88.83 ? 70.15 ??AST/SGOT?(Unit/L) 19 ? 23 ??ALT/SGPT?(Unit/L) 14 ? 16 ??ALKALINE?PHOSPHATASE?(Unit/L) 80 ? 82 ??BILIRUBIN,?TOTAL?(mg/dL) <?0.2?L ? 0.3 ??PROTEIN?TOTAL?(gm/dl) 6.8 ? 6.8 ??ALBUMIN,?SERUM?(gm/dl) 4.4 ? 4.4 ??GLOBULIN?(gm/dl) 2.4 ? 2.4 ??ALBUMIN/GLOBULIN?RATIO 1.8 ? 1.8 ??CALCIUM,?SERUM?(mg/dL) 9.4 ? 9.2 ??CALCIUM?SERUM?(CORRECTED)?(mg/dL) 9.4 ? 9.2 ASSESSMENT/PLAN: ASSESSMENT: Patient is clinically doing well without any complaints today . Ms. Etienne is planning on having cervical spine surgery in near future. Her squamous cell carcinoma of the skin seems to be in remission without any obvious lesions Locally recurrent squamous cell carcinoma of the right chest wall status post surgery. History of HIV currently on antiretroviral. AIDS currently on retroviral therapy under the care of Dr Gibbs. PLAN: Continue Cemiplimab as per treatment plan. The last treatment prior to cervical spine surgery should be 3 weeks before the surgery. I have advised her to restart the Cemiplimab treatments 3 weeks after the surgery. Jaimie Sylvester, born 1970, with a history of melanoma, presents for follow-up with concerns about lymph node activity and dizziness. Melanoma (history of) Assessment: Patient has a history of melanoma, surgically treated at [facility]. Recent PET scan shows mildly active lymph node on the right side, which corresponds to the side of previous melanoma. There is concern for potential recurrence or metastasis. 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 The melanoma has previously spread to the chest. Brain involvement cannot be ruled out with PET scan alone due to high baseline activity. Plan: - Refer back to [facility] surgeon for evaluation of PET scan findings - Order brain MRI to evaluate for potential metastasis - Refer to sand miller for comprehensive skin evaluation - Plan for immunotherapy pending surgical evaluation - Order circulating tumor DNA test to monitor for early recurrence - Follow-up appointment in 4 weeks to review progress and test results - Educate patient on importance of UV protection, even indoors Dizziness Assessment: Patient reports experiencing dizziness. The etiology is unclear at this time and may warrant further investigation, especially in the context of the patient's history of melanoma. Plan: - Monitor symptoms - Further evaluation to be considered based on progression and other test results Oral blisters Assessment: Patient reports waking up with blisters in the mouth. Plan: - Monitor symptoms - may be from immunotherapy - advised to use biotine mouthwash ORDERS: Order # Description [id number] Follow Up Appointment [id number] CBC + Comprehensive Metabolic Panel [id number] Lab Appointment [id number] Follow Up Appointment [id number] CBC + Comprehensive Metabolic Panel [id number] Lab Appointment [id number] Follow Up Appointment [id number] CBC + Comprehensive Metabolic Panel [id number] Lab Appointment [id number] Follow Up Appointment [id number] CBC + Comprehensive Metabolic Panel [id number] Lab Appointment [id number] Follow Up Appointment [id number] CBC + Comprehensive Metabolic Panel [id number] Lab Appointment [id number] Follow Up Appointment [id number] CBC + Comprehensive Metabolic Panel [id number] Lab Appointment [id number] Follow Up Appointment [id number] CBC + Comprehensive Metabolic Panel [id number] Lab Appointment [id number] Follow Up Appointment [id number] CBC + Comprehensive Metabolic Panel [id number] Lab Appointment [id number] Follow Up Appointment [id number] CBC + Comprehensive Metabolic Panel [id number] Lab Appointment [id number] Follow Up Appointment [id number] CBC + Comprehensive Metabolic Panel [id number] Lab Appointment [id number] Follow Up Appointment [id number] CBC + Comprehensive Metabolic Panel [id number] Lab Appointment [id number] Follow Up Appointment [id number] CBC + Comprehensive Metabolic Panel [id number] Lab Appointment [id number] Follow Up Appointment [id number] CBC + Comprehensive Metabolic Panel [id number] Lab Appointment [id number] Follow Up Appointment RETURN TO CLINIC: BILLING AND COMPLIANCE: I reviewed external records from providers outside my specialty as summarized above. I spent a total of 50 minutes on this patient?s care on the day of their visit excluding time spent related to any billed procedures. This time includes time spent with the patient as well as time spent documenting in the medical record, reviewing patients records and tests, obtaining history, placing orders, communicating with other healthcare professionals, counseling the patient, family or caregiver, and/or care coordination for the diagnoses above. Electronically Signed by: Reji Oneill MD T: 9:51 PM CC: Tyrese? PCP: Bj Guo Referring: Bj Guo This document was completed utilizing speech recognition software. Grammatical errors, random word insertions, pronoun errors, and incomplete sentences are an occasional consequence of this system due to software limitations, ambient noise, and hardware issues. Any formal questions or concerns about the content, text or information contained within the body of this dictation should be directly addressed to the provider for clarification.
[2025-02-18 14:47] LABS: Basophils % (Auto) 1 % (0-2.5); Eosinophils # (Auto) 0.1 Thou/mm3 (0.0-0.5); Eosinophils % (Auto) 1 % (0-10); Hematocrit 34.6 % (36.0-46.0); Hemoglobin 12.4 g/dL (12.0-16.0); Immature Granulocytes % (Auto) 0 % (0-0); Immature Granulocytes Auto 0.02 Thou/mm3 (0.00-0.00); Lymphocytes # (Auto) 1.7 Thou/mm3 (1.0-4.8); Lymphocytes % (Auto) 27 % (10-50); Mean Corpuscular HGB Conc 35.8 g/dl (31.0-37.0); Mean Corpuscular Hemoglobin 30.6 pg (25.0-35.0); Mean Corpuscular Volume 85 fL (80-100); Monocytes # (Auto) 0.3 Thou/mm3 (0.0-0.8); Monocytes % (Auto) 5 % (0-12); Neutrophils # (Auto) 4.1 Thou/mm3 (1.8-7.7); Neutrophils % (Auto) 66 % (37-80); Nucleated Red Blood Cell % 0 /100 WBC (0); Platelet Count 251 Thou/mm3 (140-440); RDW Standard Deviation 40.4 fL (36.4-46.3); Red Blood Count 4.05 Miln/mm3 (4.00-5.20); White Blood Count 6.3 Thou/mm3 (3.6-11.0)
[2025-02-18 15:05] LABS: Alanine Aminotransferase 16 U/L (10-49); Albumin, Serum 4.2 gm/dL (3.5-5.0); Albumin/Globulin Ratio 1.8 (1.2-2.2); Alkaline Phosphatase 73 U/L (46-116); Anion Gap 8 (7-16); Aspartate Amino Transferase 18 U/L (0-34); BUN/Creatinine Ratio 9 Ratio (12-20); Bilirubin,Total 0.2 mg/dL (0.3-1.2); Blood Urea Nitrogen 10 mg/dL (9-23); Calcium 9.1 mg/dL (8.3-10.6); Calcium (Corrected) 9.1 mg/dL (8.5-10.1); Carbon Dioxide 22.7 mMol/L (20.0-31.0); Chloride 109 mMol/L (98-107); Creatinine (Component) 1.1 mg/dL (0.6-1.3); Globulin 2.3 gm/dL (2.3-3.5); Glucose 83 mg/dL (74-106); Osmolality,Calculated 277 (275-295); Potassium 3.9 mMol/L (3.4-5.1); Sodium 140 mMol/L (136-145); Thyroid Stimulating Hormone 1.53 uIU/mL (0.55-4.78); Total Protein 6.5 gm/dL (5.7-8.2); eGFR 60 See Note
== END 2025-02-24 23:59 | disposition home or self-care (01) ==
LOC: SCTC 12:59
PROVIDERS: PCP Family Medicine; Referring Provider Family Medicine; Visit Provider Internal Medicine Hematology & Oncology
DX: Z51.11 Encounter for antineoplastic chemotherapy (principal); C44.521 Squamous cell carcinoma of skin of breast; R42 Dizziness and giddiness; S00.522A Blister (nonthermal) of oral cavity, initial encounter; X58.XXXA Exposure to other specified factors, initial encounter; L98.9 Disorder of the skin and subcutaneous tissue, unspecified
CPT/HCPCS: 36415; 80053; 84443; 85025; 96413; 99212; J7050; J9119; G0463

== ENCOUNTER 2025-03-12 12:58 | Outpatient (RCR) | payer MEDICARE, SELFPAY ==
[2025-03-11 16:09] LABS: Basophils # (Auto) 0.0 Thou/mm3 (0.0-0.2); Basophils % (Auto) 0 % (0-2.5); Eosinophils # (Auto) 0.1 Thou/mm3 (0.0-0.5); Eosinophils % (Auto) 1 % (0-10); Hematocrit 36.6 % (36.0-46.0); Hemoglobin 13.0 g/dL (12.0-16.0); Immature Granulocytes Auto 0.02 Thou/mm3 (0.00-0.00); Lymphocytes # (Auto) 1.8 Thou/mm3 (1.0-4.8); Lymphocytes % (Auto) 25 % (10-50); Mean Corpuscular HGB Conc 35.5 g/dl (31.0-37.0); Mean Corpuscular Hemoglobin 30.7 pg (25.0-35.0); Mean Corpuscular Volume 86 fL (80-100); Monocytes # (Auto) 0.5 Thou/mm3 (0.0-0.8); Monocytes % (Auto) 6 % (0-12); Neutrophils # (Auto) 4.8 Thou/mm3 (1.8-7.7); Neutrophils % (Auto) 67 % (37-80); Nucleated Red Blood Cell # 0.00 Thou/mm3 (0.00-0.00); Nucleated Red Blood Cell % 0 /100 WBC (0); Platelet Count 277 Thou/mm3 (140-440); RDW Standard Deviation 39.8 fL (36.4-46.3); Red Blood Count 4.24 Miln/mm3 (4.00-5.20); White Blood Count 7.1 Thou/mm3 (3.6-11.0)
[2025-03-11 16:26] LABS: Alanine Aminotransferase 12 U/L (10-49); Albumin, Serum 4.5 gm/dL (3.5-5.0); Albumin/Globulin Ratio 1.7 (1.2-2.2); Alkaline Phosphatase 80 U/L (46-116); Anion Gap 10 (7-16); Aspartate Amino Transferase 18 U/L (0-34); BUN/Creatinine Ratio 9 Ratio (12-20); Bilirubin,Total 0.4 mg/dL (0.3-1.2); Blood Urea Nitrogen 10 mg/dL (9-23); Calcium 9.4 mg/dL (8.3-10.6); Calcium (Corrected) 9.4 mg/dL (8.5-10.1); Carbon Dioxide 24.0 mMol/L (20.0-31.0); Chloride 103 mMol/L (98-107); Creatinine (Component) 1.1 mg/dL (0.6-1.3); Globulin 2.7 gm/dL (2.3-3.5); Glucose 100 mg/dL (74-106); Osmolality,Calculated 272 (275-295); Potassium 4.1 mMol/L (3.4-5.1); Sodium 137 mMol/L (136-145); Thyroid Stimulating Hormone 2.02 uIU/mL (0.55-4.78); Total Protein 7.2 gm/dL (5.7-8.2); eGFR 60 See Note
== END 2025-03-27 23:59 | disposition home or self-care (01) ==
LOC: SCTC 12:58
PROVIDERS: PCP Family Medicine; Referring Provider Family Medicine; Visit Provider Internal Medicine Hematology & Oncology
DX: Z51.11 Encounter for antineoplastic chemotherapy (principal); C44.529 Squamous cell carcinoma of skin of other part of trunk; Z21 Asymptomatic human immunodeficiency virus [HIV] infection status; Z79.899 Other long term (current) drug therapy; R42 Dizziness and giddiness; S00.522A Blister (nonthermal) of oral cavity, initial encounter; X58.XXXA Exposure to other specified factors, initial encounter
CPT/HCPCS: 36415; 36430; 36591; 80053; 84443; 85025; 96361; 96366; 96372; 96375; 96413; 96415; 96549; J7050; J9119

== ENCOUNTER 2025-04-15 13:07 | Outpatient (RCR) | payer MEDICARE, SELFPAY ==
[2025-04-14 14:00] LABS: Basophils # (Auto) 0.0 Thou/mm3 (0.0-0.2); Basophils % (Auto) 1 % (0-2.5); Eosinophils # (Auto) 0.2 Thou/mm3 (0.0-0.5); Eosinophils % (Auto) 2 % (0-10); Hematocrit 37.4 % (36.0-46.0); Hemoglobin 12.8 g/dL (12.0-16.0); Immature Granulocytes Auto 0.03 Thou/mm3 (0.00-0.00); Lymphocytes # (Auto) 1.5 Thou/mm3 (1.0-4.8); Lymphocytes % (Auto) 21 % (10-50); Mean Corpuscular HGB Conc 34.2 g/dl (31.0-37.0); Mean Corpuscular Hemoglobin 30.9 pg (25.0-35.0); Mean Corpuscular Volume 90 fL (80-100); Monocytes # (Auto) 0.4 Thou/mm3 (0.0-0.8); Monocytes % (Auto) 6 % (0-12); Neutrophils # (Auto) 5.2 Thou/mm3 (1.8-7.7); Neutrophils % (Auto) 71 % (37-80); Nucleated Red Blood Cell # 0.00 Thou/mm3 (0.00-0.00); Nucleated Red Blood Cell % 0 /100 WBC (0); Platelet Count 300 Thou/mm3 (140-440); RDW Standard Deviation 42.0 fL (36.4-46.3); Red Blood Count 4.14 Miln/mm3 (4.00-5.20); White Blood Count 7.4 Thou/mm3 (3.6-11.0)
[2025-04-14 14:24] LABS: Alanine Aminotransferase 14 U/L (10-49); Albumin, Serum 4.4 gm/dL (3.5-5.0); Albumin/Globulin Ratio 1.8 (1.2-2.2); Alkaline Phosphatase 75 U/L (46-116); Anion Gap 12 (7-16); Aspartate Amino Transferase 20 U/L (0-34); BUN/Creatinine Ratio 15 Ratio (12-20); Bilirubin,Total 0.3 mg/dL (0.3-1.2); Blood Urea Nitrogen 15 mg/dL (9-23); Calcium 9.8 mg/dL (8.3-10.6); Calcium (Corrected) 9.8 mg/dL (8.5-10.1); Carbon Dioxide 20.9 mMol/L (20.0-31.0); Chloride 107 mMol/L (98-107); Creatinine (Component) 1.0 mg/dL (0.6-1.3); Globulin 2.4 gm/dL (2.3-3.5); Glucose 93 mg/dL (74-106); Osmolality,Calculated 280 (275-295); Potassium 4.2 mMol/L (3.4-5.1); Sodium 140 mMol/L (136-145); Thyroid Stimulating Hormone 1.25 uIU/mL (0.55-4.78); Total Protein 6.8 gm/dL (5.7-8.2); eGFR > 60 See Note
== END 2025-04-27 23:59 | disposition home or self-care (01) ==
LOC: SCTC 13:07
PROVIDERS: PCP Family Medicine; Referring Provider Family Medicine; Visit Provider Internal Medicine Hematology & Oncology
DX: Z51.11 Encounter for antineoplastic chemotherapy (principal); C44.521 Squamous cell carcinoma of skin of breast; Z21 Asymptomatic human immunodeficiency virus [HIV] infection status; Z79.899 Other long term (current) drug therapy; R42 Dizziness and giddiness; S00.522D Blister (nonthermal) of oral cavity, subsequent encounter; X58.XXXD Exposure to other specified factors, subsequent encounter
CPT/HCPCS: 36415; 80053; 84443; 85025; 96413; J7050; J9119

== ENCOUNTER 2025-05-19 13:24 | Outpatient (RCR) | payer MEDICARE, SELFPAY ==
[2025-05-05 16:12] LABS: Basophils # (Auto) 0.0 Thou/mm3 (0.0-0.2); Basophils % (Auto) 1 % (0-2.5); Eosinophils # (Auto) 0.3 Thou/mm3 (0.0-0.5); Eosinophils % (Auto) 4 % (0-10); Hematocrit 38.9 % (36.0-46.0); Hemoglobin 13.3 g/dL (12.0-16.0); Immature Granulocytes Auto 0.01 Thou/mm3 (0.00-0.00); Lymphocytes # (Auto) 1.8 Thou/mm3 (1.0-4.8); Lymphocytes % (Auto) 28 % (10-50); Mean Corpuscular HGB Conc 34.2 g/dl (31.0-37.0); Mean Corpuscular Hemoglobin 30.8 pg (25.0-35.0); Mean Corpuscular Volume 90 fL (80-100); Monocytes # (Auto) 0.5 Thou/mm3 (0.0-0.8); Monocytes % (Auto) 7 % (0-12); Neutrophils # (Auto) 3.8 Thou/mm3 (1.8-7.7); Neutrophils % (Auto) 60 % (37-80); Nucleated Red Blood Cell # 0.00 Thou/mm3 (0.00-0.00); Nucleated Red Blood Cell % 0 /100 WBC (0); Platelet Count 291 Thou/mm3 (140-440); RDW Standard Deviation 42.5 fL (36.4-46.3); Red Blood Count 4.32 Miln/mm3 (4.00-5.20); White Blood Count 6.3 Thou/mm3 (3.6-11.0)
[2025-05-05 16:40] LABS: Alanine Aminotransferase 18 U/L (10-49); Albumin, Serum 4.5 gm/dL (3.5-5.0); Albumin/Globulin Ratio 1.9 (1.2-2.2); Alkaline Phosphatase 79 U/L (46-116); Anion Gap 12 (7-16); Aspartate Amino Transferase 22 U/L (0-34); BUN/Creatinine Ratio 9 Ratio (12-20); Bilirubin,Total 0.2 mg/dL (0.3-1.2); Blood Urea Nitrogen 9 mg/dL (9-23); Calcium 9.4 mg/dL (8.3-10.6); Calcium (Corrected) 9.4 mg/dL (8.5-10.1); Carbon Dioxide 21.9 mMol/L (20.0-31.0); Chloride 110 mMol/L (98-107); Creatinine (Component) 1.0 mg/dL (0.6-1.3); Globulin 2.4 gm/dL (2.3-3.5); Glucose 71 mg/dL (74-106); Osmolality,Calculated 283 (275-295); Potassium 4.2 mMol/L (3.4-5.1); Sodium 144 mMol/L (136-145); Thyroid Stimulating Hormone 1.40 uIU/mL (0.55-4.78); Total Protein 6.9 gm/dL (5.7-8.2); eGFR > 60 See Note
--- NOTE | 2025-05-25 23:10 | CTCFLWUP_ITS ---
Patient: NGA ETIENNE : 1970 Page 7 of 8 FOLLOW UP NOTE DATE OF SERVICE: 05/19/2025 NAME: NGA ETIENNE ACCOUNT: [id number] : 1970 AGE: 54 INTERVAL HISTORY: Subjective: Patient since last visit is doing well. She do not have any new complaints. 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 Patient is here to follow-up on his squamous cell cancer as well as various skin lesions Review of Systems General: Positive for dizziness. Skin: Positive for blisters in mouth. HEENT: Positive for blisters in mouth. Neurological: Positive for dizziness. Objective: Physical Examination Neck: One mildly active lymph node noted on the right side. Skin: Lesion observed on the patient's ear on the right side. 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 Patient has been on Cemiplimab since 01/22/2020. History of HIV currently on antiretroviral medications under the care of Dr Gibbs. DATE OF DIAGNOSIS: STAGE/TNM: TREATMENT HISTORY: Care?Plan Start?Date Cycle Day Intent Cemiplimab?michael 04/30/2020 1 21 Palliative HISTORY OF PRESENT ILLNESS: Nga Etienne is a 54-year-old ENG speaking female with following history. 1986: Patient was diagnosed with HIV. She was 16 years old. According to her she contacted the HIV virus from her boyfriend who had blood transfusion. Currently she is being followed by Dr Gibbs infectious disease specialist from [place]. She saw him about 4 months ago. Currently she is on antiretroviral medications. Patient denies any history of drug abuse. 2018: Patient had surgery done at [facility] on right periorbital region. She had a tumor removed from that area. 3 months later she started noticing nodules on the right chest. According to her these 2 are related. 10/07/2019: Patient had radical resection of the fungating right chest squamous cell carcinoma measuring 20 x 15 cm in size. Pathology showed the following. 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 abacavir - 300 mg tab As directed 2. baclofen - 10 mg 1 tab Twice a Day 3. busPIRone - 15 mg 0.5 tab Twice a Day 4. doxepin - 50 mg 1 Capsule Every day before sleep 5. Edurant - 25 mg 1 tab Daily 6. escitalopram oxalate - 20 mg 1 tab Daily 7. ibuprofen - 800 mg 1 tab Three times a day 8. lovastatin - 20 mg 1 tab Daily 9. Lyrica - 100 mg Four times a day 10. [place] - 10-325 mg 1 tab Every 8 Hours 11. ondansetron - 8 mg 1 tab Every 8 Hours 12. ondansetron - 8 mg 8 mg Daily 13. potassium chloride - 8 mEq 1 tab Daily 14. QUEtiapine - 50 mg 1 tab Every day before sleep 15. Tivicay - 50 mg 1 tab Daily 16. tiZANidine - 2 mg 1 Capsule As directed 17. verapamil - 180 mg 1 tab Twice a Day Medications Last Reconciled by Yuly Rojas MD on 05/19/2025 ALLERGIES: codeine sulfate REVIEW OF SYSTEMS: A complete 14-point review of systems was performed and is negative except as noted in interval history. PHYSICAL EXAMINATION: VITAL SIGNS: Temperature?98.7, B/P?145/96, Oxygen?Saturation?98% Weight?179?lbs (Change?since?05/07/25:?5.2?lbs) PAIN: 0 - No pain ECOG Performance Status: None GENERAL APPEARANCE: Appears well, in no apparent distress, appropriately interactive. HEENT: Normocephalic, no temporal wasting, normal conjunctiva, no scleral icterus, normal hearing, lips without lesions, neck normal range of motion. CARDIOVASCULAR: Not assessed. PULMONARY: Normal respiratory effort, no respiratory distress or use of accessory muscles, speaking in full sentences, no tachypnea. EXTREMITIES: No pedal edema or cyanosis. SKIN: Normal skin appearance. NEUROLOGIC: Alert and oriented x4. PSHYCHIATRIC: Appropriate affect, mood normal, behavior normal, intact thought and speech. LABORATORY DATA: I have personally reviewed and interpreted each of the patient?s relevant lab tests, abnormal findings are below: Date 04/14/25 05/05/25 ??WHITE?BLOOD?COUNT?(Thou/mm3) 7.4 6.3 ??RED?BLOOD?COUNT?(Miln/mm3) 4.14 4.32 ??HEMOGLOBIN?(gm/dl) 12.8 13.3 ??HEMATOCRIT?(%) 37.4 38.9 ??PLATELET?COUNT?(Thou/mm3) 300 291 ??NEUTROPHILS?%,?AUTO?(%) 71 60 ??LYMPH?%,?AUTO?(%) 21 28 ??NEUTROPHILS,?AUTO?(Thou/mm3) 5.2 3.8 ??GLUCOSE,RANDOM?(mg/dL) 93 71?L ??BLOOD?UREA?NITROGEN?(mg/dL) 15 9 ??CREATININE?(mg/dL) 1.00 1.00 ??SODIUM?(mmol/L) 140 144 ??POTASSIUM?(mmol/L) 4.2 4.2 ??CHLORIDE?(mmol/L) 107 110?H ??CrCl?(CandG)?(ml/min) 69.82 79.58 ??AST/SGOT?(Unit/L) 20 22 ??ALT/SGPT?(Unit/L) 14 18 ??ALKALINE?PHOSPHATASE?(Unit/L) 75 79 ??BILIRUBIN,?TOTAL?(mg/dL) 0.3 0.2?L ??PROTEIN?TOTAL?(gm/dl) 6.8 6.9 ??ALBUMIN,?SERUM?(gm/dl) 4.4 4.5 ??GLOBULIN?(gm/dl) 2.4 2.4 ??ALBUMIN/GLOBULIN?RATIO 1.8 1.9 ??CALCIUM,?SERUM?(mg/dL) 9.8 9.4 ??CALCIUM?SERUM?(CORRECTED)?(mg/dL) 9.8 9.4 ASSESSMENT/PLAN: ASSESSMENT: Squamous cell cancer of the skin Patient is clinically doing well without any complaints today . Her squamous cell carcinoma of the skin seems to be in remission without any obvious lesions Locally recurrent squamous cell carcinoma of the right chest wall status post surgery. History of HIV currently on antiretroviral. AIDS currently on retroviral therapy under the care of Dr Gibbs. PLAN: Continue Cemiplimab as per treatment plan. Patient has a history of melanoma, surgically treated at [facility]. Recent PET scan shows mildly active lymph node on the right side, which corresponds to the side of previous melanoma. There is concern for potential recurrence or metastasis. 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 The melanoma has previously spread to the chest. Brain involvement cannot be ruled out with PET scan alone due to high baseline activity. Plan: - Refer back to [facility] surgeon for evaluation of PET scan findings. Patient is yet to have appointment Last PET scan in January 2025 showed weekly hypermetabolic submental and right carotid triangle lymphadenopathy - Order brain MRI to evaluate for potential metastasis. Patient have not completed the same Patient have a dermatology follow-up -CT DNA testing - Educate patient on importance of UV protection, even indoors ORDERS: Order # Description RETURN TO CLINIC: I reviewed the diagnosis, prognosis, and recommended treatment/procedure options with the patient (and/or their legal payable representative), including the potential benefits, risks, side effects and alternative therapies. We also discussed the option of no treatment and the possibility of clinical trial participation, if applicable. All questions were addressed, and they demonstrated understanding. They provided informed consent to proceed with the proposed plan of care. BILLING AND COMPLIANCE: I reviewed external records from providers outside my specialty as summarized above. I spent a total of 50 minutes on this patient?s care on the day of their visit excluding time spent related to any billed procedures. This time includes time spent with the patient as well as time spent documenting in the medical record, reviewing patients records and tests, obtaining history, placing orders, communicating with other healthcare professionals, counseling the patient, family or caregiver, and/or care coordination for the diagnoses above. Electronically Signed by: {Object.Sanct_ID*PnP.NameFL@M}, {Object.Sanct_ID*PnP.Suffix@U} D: {Object.Sanct_Date} T: {Object.Sanct_Time} CC: Miguel?Angie,? PCP: Bj Guo Referring: Bj Guo This document was completed utilizing speech recognition software. Grammatical errors, random word insertions, pronoun errors, and incomplete sentences are an occasional consequence of this system due to software limitations, ambient noise, and hardware issues. Any formal questions or concerns about the content, text or information contained within the body of this dictation should be directly addressed to the provider for clarification.
== END 2025-05-27 23:59 | disposition home or self-care (01) ==
LOC: SCTC 13:24
PROVIDERS: PCP Family Medicine; Referring Provider Family Medicine; Visit Provider Internal Medicine Hematology & Oncology
DX: Z51.11 Encounter for antineoplastic chemotherapy (principal); C44.521 Squamous cell carcinoma of skin of breast; B20 Human immunodeficiency virus [HIV] disease; Z79.899 Other long term (current) drug therapy
CPT/HCPCS: 36591; 80053; 84443; 85025; 96413; 99212; J3490; J9119; G0463

== ENCOUNTER 2025-06-04 11:07 | Outpatient (RCR) | payer MEDICARE, SELFPAY ==
[2025-06-03 15:08] LABS: Basophils # (Auto) 0.0 Thou/mm3 (0.0-0.2); Basophils % (Auto) 0 % (0-2.5); Eosinophils # (Auto) 0.2 Thou/mm3 (0.0-0.5); Eosinophils % (Auto) 2 % (0-10); Hematocrit 35.4 % (36.0-46.0); Hemoglobin 12.3 g/dL (12.0-16.0); Immature Granulocytes Auto 0.02 Thou/mm3 (0.00-0.00); Lymphocytes # (Auto) 1.9 Thou/mm3 (1.0-4.8); Lymphocytes % (Auto) 28 % (10-50); Mean Corpuscular HGB Conc 34.7 g/dl (31.0-37.0); Mean Corpuscular Hemoglobin 30.8 pg (25.0-35.0); Mean Corpuscular Volume 89 fL (80-100); Monocytes # (Auto) 0.5 Thou/mm3 (0.0-0.8); Monocytes % (Auto) 7 % (0-12); Neutrophils # (Auto) 4.2 Thou/mm3 (1.8-7.7); Neutrophils % (Auto) 62 % (37-80); Nucleated Red Blood Cell # 0.00 Thou/mm3 (0.00-0.00); Nucleated Red Blood Cell % 0 /100 WBC (0); Platelet Count 303 Thou/mm3 (140-440); RDW Standard Deviation 39.9 fL (36.4-46.3); Red Blood Count 3.99 Miln/mm3 (4.00-5.20); White Blood Count 6.7 Thou/mm3 (3.6-11.0)
[2025-06-03 15:27] LABS: Alanine Aminotransferase 14 U/L (10-49); Albumin, Serum 4.4 gm/dL (3.5-5.0); Albumin/Globulin Ratio 1.8 (1.2-2.2); Alkaline Phosphatase 73 U/L (46-116); Anion Gap 11 (7-16); Aspartate Amino Transferase 22 U/L (0-34); BUN/Creatinine Ratio 9 Ratio (12-20); Bilirubin,Total 0.2 mg/dL (0.3-1.2); Blood Urea Nitrogen 8 mg/dL (9-23); Calcium 9.3 mg/dL (8.3-10.6); Calcium (Corrected) 9.3 mg/dL (8.5-10.1); Carbon Dioxide 23.4 mMol/L (20.0-31.0); Chloride 107 mMol/L (98-107); Creatinine (Component) 0.9 mg/dL (0.6-1.3); Globulin 2.5 gm/dL (2.3-3.5); Glucose 123 mg/dL (74-106); Osmolality,Calculated 280 (275-295); Potassium 3.9 mMol/L (3.4-5.1); Sodium 141 mMol/L (136-145); Thyroid Stimulating Hormone 2.09 uIU/mL (0.55-4.78); Total Protein 6.9 gm/dL (5.7-8.2); eGFR > 60 See Note
== END 2025-06-27 23:59 | disposition home or self-care (01) ==
LOC: SCTC 11:07
PROVIDERS: PCP Family Medicine; Referring Provider Family Medicine; Visit Provider Internal Medicine Hematology & Oncology
DX: Z51.11 Encounter for antineoplastic chemotherapy (principal); C44.521 Squamous cell carcinoma of skin of breast; Z21 Asymptomatic human immunodeficiency virus [HIV] infection status; Z79.899 Other long term (current) drug therapy
CPT/HCPCS: 36415; 80053; 84443; 85025; 96413; J3490; J9119

== ENCOUNTER 2025-06-19 23:11 | Emergency (ER) | payer MEDICARE, SELFPAY ==
[2025-06-19 23:13] VITALS: BMI 28.1
[2025-06-19 23:15] VITALS: BP 94/55; PULSE 86; RESP 18; TEMP 36.4; O2SAT 96
--- NOTE | 2025-06-19 23:49 | PD.EDADULT ---
ED General RME/HPI General Chief complaint: General Adult/Misc Complain Stated complaint: PROLAPSED RECTOM Time Seen by Provider: 06/19/25 23:49 Arrival date/time: 06/19/25 23:11 RME / HPI RME / HPI narrative: Dr. Muir?s Main ED Evaluation: 54yo female with a history of squamous cell carcinoma, HIV, HTN presents to the ED for a chief complaint of rectal prolapse x 2 days. Patient was concerned when her rectal pain worsened today and started bleeding, so she came in for evaluation. Patient denies any fever, chills, or any other associated symptoms. NKA. Related Data Home Medications ?Medication ?Instructions ?Recorded ?Confirmed dolutegravir 50 mg tablet (Tivicay) 50 mg PO HS ##0 09/11/17 11/06/23 emtricitabine 200 mg-tenofovir 1 tab PO HS #0 tabs 09/11/17 11/06/23 disoproxil fumarate 300 mg tablet quetiapine 25 mg tablet (Seroquel) 100 mg PO QPM #0 tabs 09/11/17 11/06/23 verapamil 180 mg tablet,extended 180 mg PO BID ##0 09/11/17 11/06/23 release (Calan SR) pregabalin 100 mg capsule 100 mg PO QID 09/19/19 11/06/23 doxepin 50 mg capsule 100 mg PO HS 03/01/23 11/06/23 fluticasone propionate 50 1 spray intranasal DAILY 03/01/23 11/06/23 mcg/actuation nasal spray,suspension hydrocodone 5 mg-acetaminophen 325 1 tab PO TID PRN Pain 03/01/23 11/06/23 mg tablet rilpivirine HCl 25 mg tablet 25 mg PO DAILY 03/01/23 11/06/23 (Edurant) Previous Rx's ?Medication ?Instructions ?Recorded doxycycline hyclate 100 mg tablet 100 mg PO BID #14 tabs 09/22/23 Allergies Allergy/AdvReac Type Severity Reaction Status Date / Time No Known Allergies Allergy Verified 06/19/25 23:18 Review of Systems Review of Systems Systems Reviewed: All systems reviewed, normal except as documented Past Medical History Past Medical History NEUROLOGIC: Positive Neurological Disorders and Migraine; Negative Seizures CARDIAC: Positive Hypertension; Negative Cardiac Disorders or Congestive Heart Failure RESPIRATORY: Positive Asthma (SEASONAL); Negative Chronic Obstructive Pulmonary Disease (COPD), Bronchitis or Sleep Apnea GASTROINTESTINAL: Positive Gastrointestinal Disorders (Constipation) and Gastroesophageal Reflux Disease GENITOURINARY: Negative Genitourinary Disorders or Renal Disease REPRODUCTIVE: Negative Breast Cancer MUSCULOSKELETAL: Positive Musculoskeletal Disorders and Arthritis ENDOCRINE: Negative Endocrine Disorders, Diabetes Mellitus Type 1 or Diabetes Mellitus Type 2 HEMATOLOGIC: Negative Blood Disorders or Sickle Cell Disease PSYCHO/SOCIAL: Positive Depression and Anxiety OTHER HISTORY: Positive Chemotherapy (LAST DOSE 3 WEEKS AGO), Human Immunodeficiency Virus (HIV), Chicken Pox, Measles, Mumps and Cancer; Negative Blood Transfusions, Anesthesia Reactions, Radiation Therapy or Breast Cancer Family History FAMILY HISTORY: Negative Family Cardiac Disorders Surgical History SURGICAL: Negative Cardiac Surgery Social History SMOKING STATUS: Never smoker SECOND HAND EXPOSURE: No SUBSTANCE USE: does not use ED Exam Narrative Physical exam: Generally patient is alert and chronically ill-appearing, heart regular rate and rhythm, lungs clear to auscultation equal bilaterally, abdomen soft bowel sounds present nondistended nontender, rectal exam showed no evidence of rectal prolapse at this time. No gross blood on digital exam. This was done with nurse data lead. Course Quality Measures none Orders Category Date Time Status CBC Stat Lab 06/20/25 00:54 Completed CMP [Comprehensive Metabolic Panel] Stat Lab 06/20/25 00:54 Completed Potassium Chloride [K-Dur] Med 06/20/25 02:07 Once 60 meq PO X1 ONE Sodium Chloride 0.9% 1000 ml [Ns] 1,000 ml Med 06/20/25 00:04 Discontinued IV 999 mls/hr Vital Signs Vital signs: Vital Signs Temperature 97.5 F 06/19/25 23:15 Pulse Rate 86 06/19/25 23:15 Respiratory Rate 18 06/19/25 23:15 Blood Pressure 94/55 L 06/19/25 23:15 Pulse Oximetry (%) 96 06/19/25 23:15 Oxygen Delivery Method Room Air 06/19/25 23:15 Discharge Plan Plan Patient Disposition: HOME (Self Care) Prescriptions/Referrals Prescriptions/Med Rec: No Action quetiapine [Seroquel] 25 MG tablet 100 mg PO QPM Qty: 0 verapamil [Calan SR] 180 MG tablet extended release 180 mg PO BID Qty: 0 emtricitabine-tenofovir (TDF) 200-300 mg Tablet 1 tab PO HS Qty: 0 Tivicay 50 MG tablet 50 mg PO HS Qty: 0 pregabalin 100 mg capsule 100 mg PO QID doxycycline hyclate 100 mg tablet 100 mg PO BID Qty: 14 0RF doxepin 50 mg capsule 100 mg PO HS Patient Comments: TAKE 1 CAPSULE BY MOUTH EVERY DAY AT BEDTIME fluticasone propionate 50 mcg/actuation spray,suspension 1 spray INTRANASAL DAILY Edurant 25 mg tablet 25 mg PO DAILY Patient Comments: TAKE 1 TABLET BY MOUTH EVERY DAY hydrocodone-acetaminophen 5-325 mg tablet 1 tab PO TID PRN (Reason: Pain) Problem List Clinical Impression: Rectal prolapse, Hypokalemia Patient/Caregiver Discharge Instructions Education Materials: ED Hypokalemia, ED Rectal Prolapse Additional Instructions: Follow-up with the colorectal surgeon. Return to ER as needed or if condition worsens. Print Language: [place] Stand Alone Forms: [employer] Award Info., Patient Portal Info Letter MDM Narrative MDM hospital course (for use when minimal MDM required): Scribe Attestation: 06/19/25 - Maria Fernanda, Jes Guo am scribing for and in the presence of Dr. Muir. Patient has no evidence of rectal prolapse at this time. Potassium came back at 3.2. Patient received potassium chloride 60 mill equivalents p.o. Patient was counseled on the need to see a colorectal surgeon for her periodic rectal prolapse. Clinical Information Provided by: patient Medical Records reviewed [facility] (Per chart review, patient was admitted here on 09/17/23 for an abscess.) Meds/Rx considered, not ordered None Labs/Rad/Tests considered, not ordered None Chronic Illness/Social Conditions Explain: Hx squamous cell carcinoma, HIV, HTN Labs Labs: interpreted by [facility] Imaging interpretation: none Medication Administration(s) Medication Administration History Potassium Chloride (Potassium Chloride 20 Meq Tabcr) 60 meq PO X1 ONE Stop: 06/20/25 02:08 Discontinued Medications Sodium Chloride (Ns) 1,000 mls @ 999 mls/hr IV .Q1H1M ONE Stop: 06/20/25 01:04 Last Admin: 06/20/25 00:34 Dose: 999 mls/hr Documented By: LIBERTY see above Diagnosis Differential Diagnosis ED Complaint MDM: See MDM
[2025-06-20] MEDS: SODIUM CHLORIDE 0.9% 1000 ML 1,000 ML 999 ML IV (00:34)
[2025-06-20 01:11] LABS: Basophils # (Auto) 0.0 Thou/mm3 (0.0-0.2); Basophils % (Auto) 0 % (0-2.5); Eosinophils # (Auto) 0.1 Thou/mm3 (0.0-0.5); Eosinophils % (Auto) 2 % (0-10); Hematocrit 33.3 % (36.0-46.0); Hemoglobin 11.4 g/dL (12.0-16.0); Immature Granulocytes Auto 0.02 Thou/mm3 (0.00-0.00); Lymphocytes # (Auto) 1.6 Thou/mm3 (1.0-4.8); Lymphocytes % (Auto) 42 % (10-50); Mean Corpuscular HGB Conc 34.2 g/dl (31.0-37.0); Mean Corpuscular Hemoglobin 30.4 pg (25.0-35.0); Mean Corpuscular Volume 89 fL (80-100); Monocytes # (Auto) 0.2 Thou/mm3 (0.0-0.8); Monocytes % (Auto) 6 % (0-12); Neutrophils # (Auto) 1.9 Thou/mm3 (1.8-7.7); Neutrophils % (Auto) 50 % (37-80); Nucleated Red Blood Cell # 0.00 Thou/mm3 (0.00-0.00); Nucleated Red Blood Cell % 0 /100 WBC (0); Platelet Count 202 Thou/mm3 (140-440); RDW Standard Deviation 40.4 fL (36.4-46.3); Red Blood Count 3.75 Miln/mm3 (4.00-5.20); White Blood Count 3.8 Thou/mm3 (3.6-11.0)
[2025-06-20 01:34] LABS: Alanine Aminotransferase 38 U/L (10-49); Albumin, Serum 3.4 gm/dL (3.5-5.0); Albumin/Globulin Ratio 1.5 (1.2-2.2); Alkaline Phosphatase 92 U/L (46-116); Anion Gap 7 (7-16); Aspartate Amino Transferase 48 U/L (0-34); BUN/Creatinine Ratio 5 Ratio (12-20); Bilirubin,Total < 0.2 mg/dL (0.3-1.2); Blood Urea Nitrogen 5 mg/dL (9-23); Calcium 8.1 mg/dL (8.3-10.6); Calcium (Corrected) 8.6 mg/dL (8.5-10.1); Carbon Dioxide 25.1 mMol/L (20.0-31.0); Chloride 110 mMol/L (98-107); Creatinine (Component) 1.0 mg/dL (0.6-1.3); Estimated Creatinine Clearance 70.7 mL/min (>60); Globulin 2.3 gm/dL (2.3-3.5); Glucose 98 mg/dL (74-106); Osmolality,Calculated 280 (275-295); Potassium 3.2 mMol/L (3.4-5.1); Sodium 142 mMol/L (136-145); Total Protein 5.7 gm/dL (5.7-8.2); eGFR > 60 See Note
[2025-06-20 02:42] VITALS: BP 95/70; PULSE 82; RESP 14; TEMP 36.9; O2SAT 98
== END 2025-06-20 02:42 | disposition home or self-care (01) ==
LOC: SERX 06-20 03:23
PROVIDERS: Emergency Provider Emergency Medicine
DX: E87.6 Hypokalemia (principal); K62.3 Rectal prolapse; I10 Essential (primary) hypertension
CPT/HCPCS: 36415; 80053; 85025; 96360; 99284; J7030; A9270

== ENCOUNTER 2025-07-16 12:53 | Outpatient (RCR) | payer MEDICARE, SELFPAY ==
[2025-07-15 14:14] LABS: Basophils # (Auto) 0.1 Thou/mm3 (0.0-0.2); Basophils % (Auto) 1 % (0-2.5); Eosinophils # (Auto) 0.2 Thou/mm3 (0.0-0.5); Eosinophils % (Auto) 4 % (0-10); Hematocrit 39.7 % (36.0-46.0); Hemoglobin 13.7 g/dL (12.0-16.0); Immature Granulocytes Auto 0.02 Thou/mm3 (0.00-0.00); Lymphocytes # (Auto) 2.2 Thou/mm3 (1.0-4.8); Lymphocytes % (Auto) 35 % (10-50); Mean Corpuscular HGB Conc 34.5 g/dl (31.0-37.0); Mean Corpuscular Hemoglobin 30.2 pg (25.0-35.0); Mean Corpuscular Volume 88 fL (80-100); Monocytes # (Auto) 0.5 Thou/mm3 (0.0-0.8); Monocytes % (Auto) 8 % (0-12); Neutrophils # (Auto) 3.4 Thou/mm3 (1.8-7.7); Neutrophils % (Auto) 53 % (37-80); Nucleated Red Blood Cell # 0.00 Thou/mm3 (0.00-0.00); Nucleated Red Blood Cell % 0 /100 WBC (0); Platelet Count 277 Thou/mm3 (140-440); RDW Standard Deviation 41.3 fL (36.4-46.3); Red Blood Count 4.53 Miln/mm3 (4.00-5.20); White Blood Count 6.4 Thou/mm3 (3.6-11.0)
[2025-07-15 14:38] LABS: Alanine Aminotransferase 12 U/L (10-49); Albumin, Serum 4.8 gm/dL (3.5-5.0); Albumin/Globulin Ratio 2.0 (1.2-2.2); Alkaline Phosphatase 89 U/L (46-116); Anion Gap 11 (7-16); Aspartate Amino Transferase 21 U/L (0-34); BUN/Creatinine Ratio 16 Ratio (12-20); Bilirubin,Total < 0.2 mg/dL (0.3-1.2); Blood Urea Nitrogen 16 mg/dL (9-23); Calcium 9.3 mg/dL (8.3-10.6); Calcium (Corrected) 9.3 mg/dL (8.5-10.1); Carbon Dioxide 21.5 mMol/L (20.0-31.0); Chloride 107 mMol/L (98-107); Creatinine (Component) 1.0 mg/dL (0.6-1.3); Globulin 2.4 gm/dL (2.3-3.5); Glucose 96 mg/dL (74-106); Osmolality,Calculated 278 (275-295); Potassium 4.2 mMol/L (3.4-5.1); Sodium 139 mMol/L (136-145); Thyroid Stimulating Hormone 1.72 uIU/mL (0.55-4.78); Total Protein 7.2 gm/dL (5.7-8.2); eGFR > 60 See Note
== END 2025-07-27 23:59 | disposition home or self-care (01) ==
LOC: SCTC 12:53
PROVIDERS: PCP Family Medicine; Referring Provider Family Medicine; Visit Provider Internal Medicine Hematology & Oncology
DX: Z51.11 Encounter for antineoplastic chemotherapy (principal); C44.521 Squamous cell carcinoma of skin of breast; Z21 Asymptomatic human immunodeficiency virus [HIV] infection status; Z79.899 Other long term (current) drug therapy
CPT/HCPCS: 36415; 80053; 84443; 85025; 96413; J3490; J9119